=== PATIENT | male | born 1970 | race Caucasian/White ===

== ENCOUNTER 2017-12-05 11:07 | Emergency (ER) | payer MEDICARE, SELFPAY ==
[2017-12-05 11:08] VITALS: BP 145/93; PULSE 101; RESP 24; TEMP 36.7; O2SAT 95; BMI 43.2
--- NOTE | 2017-12-05 11:37 | CT_ITS ---
STUDY: CT BRAIN WITHOUT CONTRAST REASON FOR EXAM: Male, 47 years old. Headache. Intermittent double vision. RADIATION DOSAGE (If Supplied By Facility): CTDIvol = ( 44.99 ) mGy, DLP = ( 796.11 ) mGycm TECHNIQUE: Transaxial CT imaging of the brain was performed without administration of intravenous contrast material. Individualized dose optimization techniques were used for this CT. COMPARISON: None. FINDINGS: Normal soft tissue structures. Normal calvarium. Normal size ventricles and extra-axial spaces for the patient's age. Normal white matter tracts of the cerebral hemispheres. Normal basal ganglia and thalami. Normal brainstem. Normal cerebellum. There is no intracranial hemorrhage. There are no findings of an acute ischemic infarction. Mucosal thickening of the maxillary sinuses and the partial opacification of the ethmoid sinuses. CT/Brain/Head without Contrast IMPRESSION: Mucosal thickening of the maxillary sinuses bilaterally. Partial opacification of the ethmoid sinuses. Electronically Signed: Rosalio Dowling MD at 12:13 EST Tel [phone], Service support ,
--- NOTE | 2017-12-05 12:31 | ED.VISSUMM ---
- ER Visit Summary Date of Service: 12/05/17 Chief Complaint: Headache History of Present Illness: The patient is a 47 M presenting with intermittent right-sided headache for the past month. He went to the urgent care today and when he reported blurry vision, he was sent here to be evaluated. He actually states that he has had blurry vision since 2009, intermittently. He has never had his eyes checked or seen an director of land acquisition for this. He denies double vision, just blurry vision. He actually does not have any right now just occasionally when he tries to look at things that are far away. His headache is intermittent and lasts only a few seconds at a time, only over the right religion. No sinusitis symptoms. No upper respiratory symptoms. No neck pain. Physical Examination: Those are within normal limits. He is not in distress. Neck is supple. No meningeal findings. Lungs are clear bilaterally. Abdomen is soft and nontender. No focal or lateralizing neuro findings. Vision is 20/20 on my bedside exam. No pain with eye movement. Pupils are equal and reactive. No diplopia either monocular or binocular. Neurologic exam is normal. Mental status exam normal. Test Results: CT head was performed and is negative for obvious mass. There is some sinus thickening but he denies sinus pain or tenderness at this time. Emergency Department Course and Treatment: Has had the symptoms since 2009. His vision is normal here and he denies blurry or double vision. I am not certain what the cause of this is but I think that he can safely follow-up with an director of land acquisition to have his eyes examined. He will also follow-up with his primary care physician. Treatment Plan: Follow up with ophthalmology Disposition: Home in stable condition Impression: Initial encounter chronic headache uncertain etiology, initial encounter intermittent blurry vision ?8 years of uncertain etiology This note was generated with [employer] dictation software. It may contain incorrect words, spelling, and punctuation that were not noted in review of the chart prior to signing ED Disposition - Plan for ED Patient: Chief Complaint: Neuro S/Sx Instructions: ED Cephalgia Unspecified Referrals: Julian Mcqueen MD [STAFF PHYSICIAN] - 3-5 Days
--- NOTE | 2017-12-05 12:36 | ED.DCSUM_ITS ---
- ER Visit Summary Date of Service: 12/05/17 Chief Complaint: Headache History of Present Illness: The patient is a 47 M presenting with intermittent right-sided headache for the past month. He went to the urgent care today and when he reported blurry vision, he was sent here to be evaluated. He actually states that he has had blurry vision since 2009, intermittently. He has never had his eyes checked or seen an organic chemistry teacher for this. He denies double vision, just blurry vision. He actually does not have any right now just occasionally when he tries to look at things that are far away. His headache is intermittent and lasts only a few seconds at a time, only over the right latter day. No sinusitis symptoms. No upper respiratory symptoms. No neck pain. Physical Examination: Those are within normal limits. He is not in distress. Neck is supple. No meningeal findings. Lungs are clear bilaterally. Abdomen is soft and nontender. No focal or lateralizing neuro findings. Vision is 20/ 20 on my bedside exam. No pain with eye movement. Pupils are equal and reactive. No diplopia either monocular or binocular. Neurologic exam is normal. Mental status exam normal. Test Results: CT head was performed and is negative for obvious mass. There is some sinus thickening but he denies sinus pain or tenderness at this time. Emergency Department Course and Treatment: Has had the symptoms since 2009. His vision is normal here and he denies blurry or double vision. I am not certain what the cause of this is but I think that he can safely follow-up with an organic chemistry teacher to have his eyes examined. He will also follow-up with his primary care physician. Treatment Plan: Follow up with ophthalmology Disposition: Home in stable condition Impression: Initial encounter chronic headache uncertain etiology, initial encounter intermittent blurry vision ?8 years of uncertain etiology This note was generated with [employer] dictation software. It may contain incorrect words, spelling, and punctuation that were not noted in review of the chart prior to signing ED Disposition - Plan for ED Patient: Chief Complaint: Neuro S/Sx Instructions: ED Cephalgia Unspecified Referrals: Julian Mcqueen MD [STAFF PHYSICIAN] - 3-5 Days
[2017-12-05 12:46] VITALS: BP 129/68; PULSE 71; RESP 15; O2SAT 97
== END 2017-12-05 12:47 | disposition home or self-care (01) ==
LOC: ED 12:16
PROVIDERS: Emergency Provider Emergency Medicine
DX: R51 Headache (principal); H53.8 Other visual disturbances; F20.9 Schizophrenia, unspecified; F32.9 Major depressive disorder, single episode, unspecified; Z72.0 Tobacco use
CPT/HCPCS: 70450; 99282

== ENCOUNTER 2018-12-24 23:05 | Emergency (ER) | payer MEDICARE, SELFPAY ==
[2018-12-24 23:06] VITALS: BP 155/93; PULSE 134; RESP 15; TEMP 36.9; O2SAT 97; BMI 45.6
[2018-12-24 23:11] VITALS: BP 155/93; PULSE 131; RESP 18; O2SAT 98
--- NOTE | 2018-12-24 23:13 | RAD_ITS ---
STUDY: X-RAY CHEST REASON FOR EXAM: Male, 48 years old. Chest pain TECHNIQUE: Single AP portable view of the chest. COMPARISON: None. FINDINGS: The lungs are clear and expanded. There is no demonstrated pleural abnormality. Normal size heart. Normal mediastinum and jennifer. Normal visualized pulmonary arteries. Normal visualized aortic arch and descending thoracic aorta. Normal visualized thoracic spine. Normal visualized ribs, clavicles, and shoulders. There is no demonstrated abnormality of the visualized soft tissue structures of the upper abdomen. RAD/Chest 1 View (Portable) IMPRESSION: Normal x-ray examination of the chest. Electronically Signed: Chip Fermin MD at 23:51 EST , Service support ,
--- NOTE | 2018-12-24 23:13 | EKG12_ITS ---
Test Reason : CP Blood Pressure : / mmHG Vent. Rate : 127 BPM Atrial Rate : 127 BPM P-R Int : 156 ms QRS Dur : 080 ms QT Int : 290 ms P-R-T Axes : 036 217 012 degrees QTc Int : 421 ms Sinus tachycardia Right superior axis deviation Abnormal ECG Confirmed by PHUONG CONNER, ALEX ([id number]), editor in chief newspaper IRA JAMA ([id number]) on 12/29/2018 8:48:17 AM Referred By: CECILIA Confirmed By:ALEX BACA MD
--- NOTE | 2018-12-24 23:22 | ED.RN ---
FAMILY APPROACHED ME IN TRIAGE AND INFORMED THAT PT WAS HERE FOR MENTAL HEALTH ISSUES. FAMILY WAS INFORMED THAT WE NEEDED TO MAKE SURE HIS HEART WAS OKAY THEN THAT WOULD BE ADDRESSED. Neel PUENTES RN [id number]
[2018-12-24 23:26] LABS: Absolute Lymphocyte Count 2.99 X10^3/ul (0.83-4.51); Absolute Neutrophil Count 10.8 X10^3/uL (2.0-7.7); Basophil# 0.03 X10^3/uL; Basophil% 0.2 % (0-1); Eosinophil# 0.11 X10^3/uL; Eosinophils% 0.7 % (0-5); Hematocrit 46.3 % (40-54); Lymphocyte # 2.99 X10^3/ul (4.0); Lymphocyte % 20.2 % (19-41); Mean Corp Hgb Conc 34.6 g/gl (32-36); Mean Corpuscular Hgb 29.9 pg (27.0-32.0); Mean Corpuscular Volume 86.4 fL (80-94); Mean Platelet Vol. 9.2 fl (6.2-12.0); Monocyte# 0.89 X10^3/uL; Neutrophil # 10.76 X10^3/uL (2.7-7.7); Neutrophil % 72.6 % (47-70); POSITIVE COUNT NO; POSITIVE DIFFERENTIAL NO; POSITIVE MORPHOLOGY NO; Platelet Count 363 K/mm3 (150-450); RBC Distribution Width CV 13.8 % (11.6-14.6); RBC Distribution Width SD 43.2 fl (35.1-43.9); Red Blood Count 5.36 M/mm3 (4.6-6.2); White Blood Count 14.8 K/mm3 (4.4-11.0)
[2018-12-24 23:41] LABS: Anion Gap 10 (5-15); BUN 11 mg/dL (7-18); Calcium,Total 8.6 mg/dL (8.5-10.1); Chloride 105 mmol/L (98-107); EST Glomerular Filtration Rate 76 mL/min (>60); Est Glom Filt Rate - Afr Amer 92 mL/min (>60); Estimated Creatinine Clearance 79.45 ml/min; Glucose 139 mg/dL (74-106); Potassium 3.8 mmol/L (3.5-5.1); Sodium Level 136 mmol/L (136-145)
[2018-12-24 23:56] VITALS: BP 136/97; PULSE 117; RESP 23; O2SAT 96
--- NOTE | 2018-12-25 00:04 | NURSING ---
CALLED CRISIS AT 0005
[2018-12-25] MEDS: 0.9% Normal Saline 1,000 ML 999 ML IV (00:41)
[2018-12-25 01:01] LABS: Amphetamine Urine VISTA NEGATIVE (<1000 ng/mL); Barbiturate Urine VISTA NEGATIVE (< 200 ng/mL); Benzodiazepine Urine VISTA NEGATIVE (< 200 ng/mL); Cocaine Urine VISTA NEGATIVE (< 300 ng/mL); Ecstacy Urine VISTA NEGATIVE (< 500 ng/mL); Methadone Urine VISTA NEGATIVE (< 300 ng/mL); PCP Urine VISTA NEGATIVE (< 25 ng/mL); THC Urine VISTA NEGATIVE (< 50 ng/mL); Vista UDS pH Range 6
--- NOTE | 2018-12-25 01:14 | ED.DCSUM_ITS ---
- ER Visit Summary Date of Service: 12/25/18 Chief Complaint: Pain History of Present Illness: The patient is a 48 M with chest pain that has been going on for weeks. It is intermittent and lasts for seconds at a time. It feels like a sharp pain over his heart. Nothing seems to bring it on or make it worse. Nothing seems to make it better. He denies any history of this in the past. No other associated symptoms like shortness of breath, nausea, vomiting, sweats, lightheadedness. Patient reports a history of schizophrenia. He says he is compliant with Risperdal and Zoloft. He chews tobacco. Denies drug use or alcohol use. His father and aunt are with him. They mentioned that he has hallucinations and they are concerned. The patient says he has ongoing hallucinations and they are not new. He is hearing voices from his TV that tell him random things. They have told him to hurt himself in the past but they are not telling him that currently. He does not feel suicidal or homicidal. He denies any other associated psychiatric symptoms and is taking care of himself okay. Physical Examination: Afebrile and vital signs unremarkable except for a heart rate of 131. Patient is alert and oriented. No acute distress. He has a depressed mood and flat affect. Head and neck are atraumatic. Heart tachycardic but regular. Lungs clear. Abdomen soft. Skin normal in color without diaphoresis or pallor. Calf soft and supple. Strong equal pulses. Test Results: EKG showed sinus rhythm at a rate of 127. White count 14.8. Glucose 139. Troponin normal. Tox negative. Alcohol pending. Chest x-ray normal. Emergency Department Course and Treatment: Patient was initially triaged by nursing for chest pain. Workup was initiated by nursing and was fairly unremarkable. He had a white count of 14.8 but no fever or signs of infection. His workup did not reveal any evidence of infection. Patient was treated with IV fluids and his heart rate improved to 106. He had no new or worsening complaints. I did have crisis talk with the patient. He does have hallucinations, but they are not new or emergent. There is no indication for emergency hospitalization. There is no indication to change his medications tonight. They will coordinate follow-up with him. Call tomorrow. Patient was advised to follow-up with his primary care doctor. Return for any new or worsening issues. Treatment Plan: As above Disposition: Discharge Impression: 1. Chest pain unclear etiology 2. Schizophrenia This note was generated with [employer] dictation software. It may contain incorrect words, spelling, and punctuation that were not noted in review of the chart prior to signing ED Disposition - Plan for ED Patient: Referrals: Care Physician,No Primary [Primary Care Provider] -
--- NOTE | 2018-12-25 01:16 | ED.DEP ---
ED Disposition - Plan for ED Patient: Instructions: ED Chest Pain Atypical Unkn Cause Referrals: Bianca Solorzano [NON-STAFF] - Counseling[facility]Center [GROUP OF PHYSICIANS] -
[2018-12-25 01:32] VITALS: BP 143/90; PULSE 100; RESP 18; O2SAT 97
[2018-12-25 01:36] LABS: Alcohol, Blood (Medical)-Serum < 3.0 mg/dL
== END 2018-12-25 01:32 | disposition home or self-care (01) ==
LOC: ED 12-25 00:13
PROVIDERS: Emergency Provider Emergency Medicine
DX: R07.9 Chest pain, unspecified (principal); F20.9 Schizophrenia, unspecified; F17.220 Nicotine dependence, chewing tobacco, uncomplicated; Z79.899 Other long term (current) drug therapy
CPT/HCPCS: 71045; 80048; 80307; 80320; 84484; 85025; 93005; 96360; 99285; J7030; A4216; G0480

== ENCOUNTER 2021-07-23 19:59 | Emergency (ER) | payer MEDICARE, SELFPAY ==
[2021-07-23 20:00] VITALS: BP 161/112; PULSE 117; RESP 16; TEMP 36.6; O2SAT 98
[2021-07-23 20:02] VITALS: BP 161/112; PULSE 117; RESP 16; TEMP 36.6; O2SAT 98
[2021-07-23 23:13] VITALS: BP 121/89; PULSE 107; RESP 16; O2SAT 100
--- NOTE | 2021-07-23 23:18 | EX.ED.DYSGE1 ---
HPI History of Present Illness Chief Complaint: Weakness Detail of Chief Complaint: Weakness, numbness abdomen and both lower extremities Informant: patient and family Onset/Context/Timing Onset: Weeks (Onset 3 weeks ago) Context: Gradual Onset Timing: Continuous Quality: Numbness Location: Abdomen and both lower extremities Current Severity: Mild Worsened by: Nothing Relieved by: Nothing Associated Symptoms Associated Symptoms: Generalized weakness weakness Narrative Narrative: Patient is a 51-year-old male with history of psychiatric disorder of depression. He presents because of numbness in his mid upper abdomen and medial aspect of the right and left lower legs from the groin to the mid calf. He denies fever, chills night sweats. He denies ocular, visual auditory symptoms. He denies cardiac or respiratory symptoms. He denies nausea, vomiting diarrhea. He denies hematemesis, melena medic easier. He denies dysuria, frequency, urgency or hematuria. His urine may be darker than normal. He denies history of hepatitis. He was unaware that his skin appears yellow. He denies trouble with balance. No trouble with speech or swallowing. Prior similar symptoms: No Recent Illness/Hospitalization: No PFSH PFS Medical History Depression Schizophrenia Home Medications risperidone [Risperdal] 4 mg PO DAILY 09/06/15 [History Last Taken 12/24/18] sertraline [Zoloft] 50 mg PO DAILY 09/06/15 [History Last Taken 12/24/18] Allergy/AdvReac Type Severity Reaction Status Date / Time No Known Allergies Allergy Verified 07/23/21 20:02 Social History (Updated 07/23/21 @ 23:[address] Ozzy Betts MD) household members: none Smoking Status: Never smoker alcohol intake: never substance use type: does not use ROS ROS ED Constitutional Constitutional ED: Reports other Details: Patient's had weight gain over the past several months. ; Denies chills, fever(s), subjective, sweats or weight loss Eyes Eyes: Denies blurry vision or change in vision ENT ENT ED: Denies ear pain, rhinorrhea or sore throat Cardiovascular Cardiovascular: Denies chest pain, orthopnea, palpitations, paroxysmal nocturnal dyspnea or racing heartbeat Respiratory/Chest Respiratory/Chest: Denies cough, dyspnea, dyspnea on exertion, orthopnea, paroxysmal nocturnal dyspnea or sputum Gastrointestinal Gastrointestinal: Reports abdominal pain; Denies constipation, diarrhea, melena, nausea or vomiting Genitourinary Genitourinary ED: Denies dysuria, hematuria or urinary frequency Musculoskeletal Musculoskeletal: Denies arthralgias, back pain, myalgias or neck pain Integumentary Denies rash Neurologic Neurologic: Reports paresthesias and weakness; Denies headache(s) Psychiatric Psychiatric: Reports depression Endocrine Endocrinology: Denies polydipsia, polyphagia or polyuria Allergic/Immunologic Allergic/Immunologic ED: Denies urticaria EXAM Physical Exam Const Vital Signs: 07/23/21 20:00 07/23/21 20:02 07/23/21 23:13 Temperature 98 F 98 F Temperature Source Temporal Temporal Pulse Rate 117 H 117 H 107 H Respiratory Rate 16 16 16 Blood Pressure 161/112 H 161/112 H 121/89 H Blood Pressure Mean 128 128 99 Pulse Ox 98 98 100 Oxygen Delivery Method Room Air Room Air Room Air 07/24/21 01:00 Temperature Temperature Source Pulse Rate 103 H Respiratory Rate 14 Blood Pressure 125/86 H Blood Pressure Mean 99 Pulse Ox 97 Oxygen Delivery Method Room Air Positive well nourished, well developed, obese and unkempt General Appearance ED: unkempt, well developed and pallor Nutritional Appearance: obese HEENT HEENT Narrative: Head is atraumatic normocephalic. Ears normal. Nares patent. Posterior pharynx no erythema or exudate. Patient has poor dentition with periodontal disease. Eyes PERRL and EOMs intact bilaterally General Eye ED: Yes scleral icterus; Negative for pale conjunctiva Neck no lymphadenopathy, supple and no JVD Chest Wall inspection of chest normal and palpation of chest normal Resp normal respiratory effort and clear to auscultation bilaterally Cardio regular rhythm, S1 normal heart sound, S2 normal heart sound and no murmurs Rate: tachycardic GI normal to inspection, nondistended, normoactive bowel sounds, non-tender and non-distended; Negative for hepatosplenomegaly Palpation: soft Back/Spine no CVA tenderness Cervical Spine: Negative for cervical spine tenderness Thoracic Spine / Upper Back: Negative for thoracic spinal tenderness or paraspinal muscle tenderness Lumbar Spine / Lower Back: Negative for lumbar spinal tenderness Extremity Negative for normal to inspection General Extremety ED: Yes edema; Negative for tenderness General Extremity: edema Neuro oriented x3, CN's II-XII intact bilaterally and no sensory deficits noted Sensorium / Orientation: alert Motor Exam: strength 5/5 throughout Psych mental status grossly normal Appearance: unkempt Skin no rashes or lesions noted and no wounds General Skin Exam: jaundice and pallor MDM MDM MDM Narrative Medical decision making narrative: Patient with vague symptoms. Concern he has jaundice. Will obtain appropriate blood work to assess liver function, CBC to assess for anemia since he may also be pale. Basic metabolic panel to assess renal function since he has not been eating well and assess his electrolytes. Lab Data Attestation: I reviewed the patient's lab results. Lab results narrative: Patient is anemic compared to prior, PT is normal. Bilirubin is elevated at 4. AST and ALT are elevated as well as alk phos. With unintentional weight loss, painless jaundice, edema of lower extremities and anemia concern patient has malignancy. CT of the abdomen and pelvis with p.o. and IV contrast was ordered. Labs: Laboratory Results - last 24 hr 07/23/21 07/23/21 07/23/21 22:28 22:28 23:10 WBC 7.3 RBC 2.73 L Hgb 10.2 L Hct 29.2 L MCV 107.0 H MCH 37.4 H MCHC 34.9 RDW Std Deviation 71.6 H RDW Coeff of Monet 18.1 H Plt Count 232 MPV 10.7 Immature Gran % (Auto) 2.100 H Neut % (Auto) 73.0 H Lymph % (Auto) 19.7 Armstrong % (Auto) 4.5 Eos % (Auto) 0.3 Baso % (Auto) 0.4 Absolute Neuts (auto) 5.3 Absolute Lymphs (auto) 1.43 Nucleated RBC % 0 Differential Comment SCANNED PT 14.7 INR 1.2 Sodium 137 Potassium 3.3 L Chloride 102 Carbon Dioxide 27.0 Anion Gap 8 BUN 9 Creatinine 1.11 Estim Creat Clear Calc 5.05 Est GFR (MDRD) Af Amer 90 Est GFR (MDRD) Non-Af 74 BUN/Creatinine Ratio 8.1 L Glucose 135 H Calcium 8.8 Total Bilirubin 4.00 H AST 117 H ALT 167 H Alkaline Phosphatase 165 H Total Protein 7.3 Albumin 3.0 L Globulin 4.3 H Albumin/Globulin Ratio 0.7 L Lipase 149 Acetaminophen 10/04/21 23:10 WBC RBC Hgb Hct MCV MCH MCHC RDW Std Deviation RDW Coeff of Monet Plt Count MPV Immature Gran % (Auto) Neut % (Auto) Lymph % (Auto) Armstrong % (Auto) Eos % (Auto) Baso % (Auto) Absolute Neuts (auto) Absolute Lymphs (auto) Nucleated RBC % Differential Comment PT INR Sodium Potassium Chloride Carbon Dioxide Anion Gap BUN Creatinine Estim Creat Clear Calc Est GFR (MDRD) Af Amer Est GFR (MDRD) Non-Af BUN/Creatinine Ratio Glucose Calcium Total Bilirubin AST ALT Alkaline Phosphatase Total Protein Albumin Globulin Albumin/Globulin Ratio Lipase Acetaminophen < 2.0 L Radiography Diagnostic Testing: Radiology Impression Abdomen/Pelvis CT 07/24/21 00:26 IMPRESSION: 1. No acute intra-abdominal abnormality. 2. Fatty infiltration of liver. 3. Simple appearing right lower renal pole cyst. Electronically Signed: Ji Pool MD at 2:41 EDT Tel , Service support , Discharge Plan Triage Chief Complaint: Weakness ED Provider: Ozzy Betts Dx/Rx/DC Orders Clinical Impression: Painless jaundice, Elevation of levels of liver transaminase levels, Unintentional weight loss of 5% body weight or less within 1 month, Anemia, unspecified, Hypokalemia Instructions: ED Anemia, Type Not Specified (Adult), ALT Prescriptions: No Action risperidone [Risperdal] 2 MG tablet 4 mg PO DAILY RF: 0 sertraline [Zoloft] 25 MG tablet 50 mg PO DAILY RF: 0 Primary Care Provider: Care Physician,No Primary Referrals: FriendOtto DO [STAFF PHYSICIAN] - 5-7 Days (Patient with painless jaundice, unintentional weight loss, elevated liver enzymes. Patient is a nondrinker. He is also anemic) Care Physician,No Primary [Primary Care Provider] - Disposition Disposition: Home, Self Care
[2021-07-23 23:32] LABS: Absolute Lymphocyte Count 1.43 X10^3/uL (0.83-4.51); Absolute Neutrophil Count 5.3 X10^3/uL (2.0-7.7); Basophil# 0.03 X10^3/uL; Basophil% 0.4 % (0-1); Eosinophil# 0.02 X10^3/uL; Eosinophils% 0.3 % (0-5); Hematocrit 29.2 % (40-54); Hemoglobin 10.2 g/dL (13.0-16.5); Lymphocyte # 1.43 X10^3/ul (0.83-4.51); Lymphocyte % 19.7 % (19-41); Mean Corp Hgb Conc 34.9 g/dL (32-36); Mean Corpuscular Hgb 37.4 pg (27.0-32.0); Mean Platelet Vol. 10.7 fl (6.2-12.0); Monocyte# 0.33 X10^3/uL; Monocyte% 4.5 % (0-10); NRBC Flagged by Analyzer 0 % (0-5); Neutrophil # 5.31 X10^3/uL (2.7-7.7); POSITIVE MORPHOLOGY YES; Platelet Count 232 K/mm3 (150-450); RBC Distribution Width CV 18.1 % (11.6-14.6); RBC Distribution Width SD 71.6 fl (35.1-43.9); Red Blood Count 2.73 M/mm3 (4.6-6.2); White Blood Count 7.3 K/mm3 (4.4-11.0)
[2021-07-23 23:37] LABS: ALB/GLOB Ratio 0.7 RATIO (0.9-2.4); AST(SGOT) 117 U/L (15-37); Alanine Aminotransfer ALT/SGPT 167 U/L (16-61); Alkaline Phosphatase 165 U/L (45-117); Anion Gap 8 (5-15); BUN 9 mg/dL (7-18); BUN/Creat Ratio 8.1 RATIO (10-20); Calcium,Total 8.8 mg/dL (8.5-10.1); Chloride 102 mmol/L (98-107); Creatinine, Serum 1.11 mg/dL (0.70-1.30); EST Glomerular Filtration Rate 74 mL/min (>60); Est Glom Filt Rate - Afr Amer 90 mL/min (>60); Estimated Creatinine Clearance 5.05 ml/min; Globulin 4.3 g/dL (2.2-4.2); Glucose 135 mg/dL (74-106); Lipase 149 U/L (73-393); Potassium 3.3 mmol/L (3.5-5.1); Protein, Total 7.3 g/dL (6.4-8.2); Sodium Level 137 mmol/L (136-145)
[2021-07-23 23:44] LABS: Differential Indicated SCAN CRITERIA MET
[2021-07-23 23:46] LABS: International Normalized Ratio 1.2; Prothrombin Time (Protime)PT. 14.7 SECONDS (11.7-14.9)
[2021-07-24 00:07] LABS: Differential Comment SCANNED
--- NOTE | 2021-07-24 00:26 | CT_ITS ---
STUDY: CT ABDOMEN AND PELVIS WITH CONTRAST REASON FOR EXAM: Male, 51 years old. Weight loss. Painless jaundice. RADIATION DOSAGE (If Supplied By Facility): CTDIvol = ( 18.74 ) mGy, DLP = ( 1326.11 ) mGycm TECHNIQUE: Transaxial images were obtained from the dome of the diaphragm to the symphysis pubis without oral contrast. Oral and amp; IV Gastrografin and amp; 100mL Isovue-370 was administered. Sagittal and coronal images were reconstructed. Individualized dose optimization techniques were used for this CT. COMPARISON: None. FINDINGS: The visualized lung bases are unremarkable. The visualized portions of the heart are within normal limits. Moderate diffuse homogeneous hypoattenuation of the. Normal gallbladder and extrahepatic biliary system. Normal spleen. Normal pancreas. Normal bilateral adrenal glands. Hypoattenuated lesion within the right lower renal pole measuring near water density. Normal left kidney. Normal bilateral ureters. Normal visualized stomach. Normal small intestine. Normal colon. The appendix is visualized and appears normal. Normal abdominal aorta. Normal inferior vena cava. Normal retroperitoneum. No free intraperitoneal air or fluid. Normal urinary bladder. Normal abdominal wall. Normal osseous structures. CT/Abdomen/Pelvis WITH Contrast IMPRESSION: 1. No acute intra-abdominal abnormality. 2. Fatty infiltration of liver. 3. Simple appearing right lower renal pole cyst. Electronically Signed: Ji Pool MD at 2:41 EDT Tel , Service support ,
[2021-07-24 01:00] VITALS: BP 125/86; PULSE 103; RESP 14; O2SAT 97
[2021-07-24 01:10] LABS: Acetaminophen (Tylenol) Level < 2.0 ug/mL (10.0-30.0)
[2021-07-24 03:04] LABS: Mucous, Urine 0 SEEN /hpf (<or=2+)
[2021-07-24 03:17] LABS: Color, Urine Yellow (Yellow); Glucose, Dipstick Normal (Normal); Ketone-Dipstick Negative (Negative); Leukocyte Esterase-Dipstick 100 /ul (Negative); Nitrite-Dipstick Negative (Negative); Occult Blood-Urine 25 /ul (Negative); Protein-Dipstick 30 mg/dl (Negative); Urine Bilirubin Dipstick Negative (Negative); Urine Clarity Sl. Cloudy (Clear); Urine Urobilinogen 4 mg/dl (Normal)
[2021-07-24 03:19] VITALS: BP 158/89; PULSE 103; RESP 16; O2SAT 97
[2021-07-24 03:30] LABS: Red Blood Cells-Urine 0-5 SEEN /hpf (0-5); Squamous Epithelial Cells - UA 0-5 SEEN /hpf (0-5); White Blood Cells 0-5 SEEN /hpf (0-5)
[2021-07-24 03:31] LABS: Bacteria RARE /hpf (None Seen)
== END 2021-07-24 03:19 | disposition home or self-care (01) ==
PROVIDERS: Emergency Provider Emergency Medicine
DX: R17 Unspecified jaundice (principal); R74.01 Elevation of levels of liver transaminase levels; R63.4 Abnormal weight loss; D64.9 Anemia, unspecified; E87.6 Hypokalemia; F32.9 Major depressive disorder, single episode, unspecified; F20.9 Schizophrenia, unspecified; Z79.899 Other long term (current) drug therapy
CPT/HCPCS: 74177; 80053; 80329; 81001; 83690; 85025; 85610; 99284; Q9967; A4216; G0480

== ENCOUNTER → 2021-08-02 12:41 | Outpatient (CLI) | payer MEDICARE, SELFPAY ==
[2021-08-02 13:40] LABS: Platelet Count 354 K/mm3 (150-450); RET-HE 42.5 pg (30-35); Reticulocyte Count 6.46 % (0.5-1.5)
[2021-08-02 13:47] LABS: International Normalized Ratio 1.2; Prothrombin Time (Protime)PT. 14.5 SECONDS (11.7-14.9)
[2021-08-02 13:48] LABS: Partial Thromboplast Time 33.5 Seconds (24.1-36.2)
[2021-08-02 14:23] LABS: Ferritin 843 ng/mL (26-388); Iron 101 ug/dL (65-175); Iron Binding Capacity,Total 249 ug/dL (250-450)
[2021-08-06 09:07] LABS: ANTINUCLEAR ANTIBODIES DIRECT Negative (Negative); Anti-Mitochondrial AB <20.0 Units (0.0-20.0)
[2021-08-10 04:07] LABS: Ceruloplasmin 19.3 mg/dL (16.0-31.0); Endomysial Antibody IgA Negative (Negative); Immunoglobulin A 221 mg/dL (90-386)
[2021-08-10 08:12] LABS: Anti-Smooth Muscle ABS 14 Units (0-19); Copper, Serum or Plasma 72 ug/dL (69-132); Deamidated Gliadin IgA 4 units (0-19); Deamidated Gliadin IgG 3 units (0-19); t-Transglutaminase IgA <2 U/mL (0-3)
== END ==
PROVIDERS: Referring Provider Internal Medicine Gastroenterology; Visit Provider Internal Medicine Gastroenterology
DX: R17 Unspecified jaundice (principal); D64.9 Anemia, unspecified
CPT/HCPCS: 36415; 82390; 82525; 82728; 82784; 83516; 83540; 83550; 85045; 85049; 85610; 85730; 86038; 86225; 86235; 86255; 86880

== ENCOUNTER → 2021-08-09 13:34 | Outpatient (CLI) | payer MEDICARE, SELFPAY ==
[2021-08-09 14:42] LABS: Absolute Lymphocyte Count 1.86 X10^3/uL (0.83-4.51); Absolute Neutrophil Count 5.7 X10^3/uL (2.0-7.7); Basophil# 0.02 X10^3/uL; Basophil% 0.2 % (0-1); Eosinophils% 1.2 % (0-5); Hemoglobin 10.6 g/dL (13.0-16.5); Lymphocyte # 1.86 X10^3/ul (0.83-4.51); Lymphocyte % 22.9 % (19-41); Mean Corp Hgb Conc 34.2 g/dL (32-36); Mean Corpuscular Hgb 38.1 pg (27.0-32.0); Mean Corpuscular Volume 111.5 fL (80-94); Mean Platelet Vol. 9.3 fl (6.2-12.0); Monocyte# 0.43 X10^3/uL; Monocyte% 5.3 % (0-10); NRBC Flagged by Analyzer 0 % (0-5); Neutrophil # 5.67 X10^3/uL (2.7-7.7); Platelet Count 324 K/mm3 (150-450); RBC Distribution Width SD 62.1 fl (35.1-43.9); Red Blood Count 2.78 M/mm3 (4.6-6.2); White Blood Count 8.1 K/mm3 (4.4-11.0)
[2021-08-09 15:09] LABS: ALB/GLOB Ratio 0.6 RATIO (0.9-2.4); AST(SGOT) 32 U/L (15-37); Alanine Aminotransfer ALT/SGPT 37 U/L (16-61); Albumin, Serum 2.4 g/dL (3.2-5.0); Alkaline Phosphatase 118 U/L (45-117); Anion Gap 8 (5-15); BUN 12 mg/dL (7-18); BUN/Creat Ratio 9.1 RATIO (10-20); Calcium,Total 8.1 mg/dL (8.5-10.1); Chloride 109 mmol/L (98-107); Creatinine, Serum 1.32 mg/dL (0.70-1.30); EST Glomerular Filtration Rate 61 mL/min (>60); Est Glom Filt Rate - Afr Amer 74 mL/min (>60); Glucose 131 mg/dL (74-106); Potassium 3.3 mmol/L (3.5-5.1); Protein, Total 6.4 g/dL (6.4-8.2); Sodium Level 141 mmol/L (136-145)
== END ==
PROVIDERS: Referring Provider Internal Medicine Gastroenterology; Visit Provider Internal Medicine Gastroenterology
DX: D64.9 Anemia, unspecified (principal); R17 Unspecified jaundice
CPT/HCPCS: 36415; 80053; 85025

== ENCOUNTER 2021-08-14 12:41 | Day surgery (SDC) | payer MEDICARE, SELFPAY ==
--- NOTE | 2021-08-14 | IMM_PTH ---
PATIENT: ANGELITA KRUSE LOC: EN U#:[id number] AGE/SX: 51/M ROOM: RE08/14/[address]: Dr. Otto Davidson DO : 1970 BED: DIS: 08/14/2021 SPEC #: [id number] RECD: 08/16/21 11:44 STATUS: GLENROY REQ #: [id number] EVE: 08/14/21 00:[address]: Otto Davidson DEPT: IMMUNOHISTOCHEMISTRY RECD BY: Shannon He ENTERED: 08/16/21 11:45 SP TYPE: IMMUNO OT DR: Isa Primary Care Phys Tissues: B - Esophageal mucous membrane Procedures: P53 (initial) KI-67 (add) PHYSICIAN & INSTITUTION [place] [id number] SPECIMEN INFORMATION: Tissue Source: B ? Distal esophagus biopsy Clinical Info: Jaundice, hepatitis, abdomen pain Specimen Number: [id number] CPT code: 88511, 93596 METHODOLOGY: Deparaffinized sections of prefer/formalin-fixed tissue or PAP/DQ stained slides are incubated with monoclonal/polyclonal antibodies/oligonucleotide probes. Localization is made via biotin free immunoperoxidase method. Appropriate controls are performed and reacted as expected. Results on target cell population are indicated in the following table: RESULTS: ANTIBODY / CLONE RESULT Block B P53 (DO-7) negative Ki-67 (30-9) positive, very low These tests were developed and their performance characteristics determined by [facility]. They may not have been cleared or approved by the U.S. Food and Drug Administration. The FDA has determined that such clearance or approval is not necessary. The above immunohistochemical/dualISH markers are ordered and reviewed by the Pathologist. INTERPRETATION: B. Distal esophagus, biopsy: Negative for dysplasia. MALGORZATA:jama 08/17/2021
[2021-08-14 13:02] VITALS: BP 146/81; PULSE 73; RESP 16; TEMP 36.3; O2SAT 100; BMI 39.4
[2021-08-14] MEDS: Lactated Ringers 1,000 ML 100 ML IV (13:11)
--- NOTE | 2021-08-14 13:45 | EGD_PTH ---
PATIENT: ANGELITA KRUSE LOC: EN U#:[id number] AGE/SX: 51/M ROOM: RE08/14/[address]: Dr. Otto Davidson DO : 1970 BED: DIS: 08/14/2021 SPEC #: [id number] RECD: 08/14/21 16:02 STATUS: GLENROY DOC #: [id number] EVE: 08/14/21 13:[address]: Otto Davidson DEPT: SURGICAL PATHOLOGY RECD BY: Eugenia Ness ENTERED: 08/15/21 10:29 SP TYPE: EGD BIOPSY OT DR: Isa Primary Care Phys Tissues: A - Duodenum, NOS B - Esophagus, NOS Procedures: Special Stain Group II Surgery Specimen Level IV Alcian Blue/PAS (control) HEADER OPERATION: EGD ([facility] [place]) PRE-OP DIAGNOSIS: Jaundice, hepatitis, abdomen pain TISSUE SUBMITTED: A ? Duodenum biopsy, B ? Distal esophagus biopsy MICROSCOPIC DIAGNOSIS A. Duodenum, biopsy: Fragments of duodenal mucosa, no pathologic diagnosis. B. 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 Mild chronic inflammation. Negative for dysplasia. See comment. SJ:jama 08/16/2021 COMMENT B. Immunohistochemistry ([id number]) for P53 and Ki-67 will be performed and results will be reported separately. Alcian blue/PAS stain with matched control is used in the evaluation of the specimen. MICROSCOPIC DESCRIPTION Slides are reviewed. GROSS DESCRIPTION A - Received in fixative is one container labeled with the patient's name and designated duodenum biopsy. The specimen consists of multiple irregular fragments of light howard soft tissue that in aggregate measure 0.6 x 0.5 x 0.1 cm. The specimen is totally submitted in one cassette. B - Received in fixative is one container labeled with the patient's name and designated distal esophagus biopsy. The specimen consists of multiple irregular fragments of light howard soft tissue that in aggregate measure 1 x 0.8 x 0.1 cm. The specimen is totally submitted in one cassette. / MALGORZATA:jama 08/15/21 TC:3 CPT: 23804 x2, 33701
--- NOTE | 2021-08-14 14:05 | HP.PCM_ITS ---
History and Physical Date of Admission: 08/14/21 [facility] [id number] [place] [address] OFFICE VISITDate of Service: 08/02/21 MR#:[id number]:[id number]: ANGELITA KRUSE [facility] #:[id number]:1970 Provider:Otto Davidson, Age/Sex: 51/M Location[place] [place]:Signed Intake Intake Visit Reasons: ER f/u - no consult Allergies No Known Allergies Allergy (Verified 08/02/21 11:43) Medications risperidone [Risperdal] 4 mg PO DAILY 09/06/15 [History Confirmed 08/02/21] sertraline [Zoloft] 50 mg PO DAILY 09/06/15 [History Confirmed 08/02/21] PFSH Medical History (Updated 08/02/21 @ 13:[address] Menjivar Friend, DO) Abdominal pain Depression Hepatitis Jaundice Schizophrenia Social History household members: none Smoking Status: Never smoker alcohol intake: never substance use type: does not use HPI HPI Details: ANGELITA KRUSE, is a 51 M who presents to the office today for the evaluation of abdominal pain and jaundice. He has a past medical history of h psychiatric disorder of depression. He presented to the ED because of numbness in his mid upper abdomen and medial aspect of the right and left lower legs from the groin to the mid calf. He denies fever, chills night sweats. He denies ocular, visual auditory symptoms. He denies cardiac or respiratory symptoms. He denies nausea, vomiting diarrhea. He denies hematemesis, melena medic easier. He denies dysuria, frequency, urgency or hematuria. His urine may be darker than normal. He denies history of hepatitis. He was unaware that his skin appears yellow. He denies trouble with balance. No trouble with speech or swallowing. He is having a lot of difficulty with walking due to tightness and discomfort in his stomach and legs for the last couple weeks. Change in bowel habits include a decreased frequency stating he is having a BM once every couple of days. Appetite has decreased due to discomfort and feelings of nausea after eating. Recently hospitalized 07/23/21 where he was diagnosed with jaundice and anemia. Ed herrera has a diagnosis of schizophrenia and his father presents with him today. He has no past medical history of liver disease. He has no family history of liver disease. He was diagnosed with schizophrenia late in life at the age of 35. He has not been on any new medicines. He has not had any illnesses. He has never received any blood transfusions. He does not have any tattoos. ROS Const Constitutional: Positive for fatigue Eyes Eyes: Positive for blurry vision Gastro GI: Positive for abdominal pain and change in bowel habits Musc Musculoskeletal: Positive for joint pain, back pain, muscle weakness, numbness, stiffness and tingling Neuro Neurology: Positive for numbness and tingling Psych Psychiatric: Positive for depression Endo Endocrine: Positive for fatigue Exam Const General: cooperative and comfortable Nutritional Appearance: average body habitus and well nourished HENMT Head: normal to inspection Ears: hearing grossly normal bilaterally Nose: external nose normal Face and sinus: normal facial exam Mouth: oral mucosae normal Throat: posterior oropharynx normal Eyes General: appearance normal, both eyes and all related structures Neck Neck: normal visual inspection Chest Chest palpation & inspection: normal inspection of the chest and normal palpation of entire chest wall Resp Effort & Inspection: normal respiratory effort Auscultation: Bilateral: Clear to Auscultation Cardio Palpation: normal PMI Rate: regular rate Rhythm: regular rhythm GI Inspection: normal to inspection Auscultation: normal bowel sounds Percussion: normal to percussion Palpation: no hepatosplenomegaly Skin General: no rashes or lesions noted Neuro General: patient alert Extrem General: normal to inspection Psych Affect: normal affect Quality Reporting Tobacco Screening ([facility] 138) Smoking Status: Never smoker Assessment and Plan Assessment and Plan (1) Jaundice: Status: Acute Orders: Orders: Retic Panel Count Today Ceruloplasmin Today Copper, Serum or Plasma Today Anti-Mitochondrial AB Today FRANCESCO w/ Reflex Mult Confirm Today Anti-Smooth Muscle ABS Today Celiac AB,Comprehensive Today MRCP Abdomen without Contrast Today Liver Biopsy Ultrasound Today Comprehensive Metabolic Profil Today Plan - Dr. Menjivar Friend, DO: The differential diagnosis for his cholestatic hepatitis would be Luis Fernando's disease, medication side effect, autoimmune hepatitis, less likely primary bili cirrhosis or primary sclerosing cholangitis. We will get an autoimmune work-up for the liver. If concern is that he might have Luis Fernando's disease because of his psychiatric history along with the anemia that was seen on his biochemical work- up in the ED. He would likely need a liver biopsy along with an MRCP. (2) Hepatitis: Status: Acute Orders: Orders: Copper, Serum or Plasma Today Liver Biopsy Ultrasound Today Prothrombin Time w/INR Today Partial Thromboplast Time Today Comprehensive Metabolic Profil Today Plan - Dr. Menjivar Friend, DO: We will get a biochemical work-up for chronic hepatitis B and chronic hepatitis C along with autoimmune hepatitis. (3) Abdominal pain: Status: Acute Plan - Dr. Menjivar Friend, DO: We will perform an upper endoscopy to evaluate his upper GI tract. He is not exquisitely tender but he is mildly tender with pressure and the epigastric area. Differential diagnosis could be peptic ulcer disease, H. pylori associated peptic ulcer disease, atypical reflux disease.
[2021-08-14 15:00] VITALS: BP 110/61; BP 146/81; PULSE 67; RESP 16; TEMP 35.7; O2SAT 93
--- NOTE | 2021-08-14 15:04 | OP.CCLET_ITS ---
06/20/2022 No Primary Care Physician Re : Upper GI endoscopy procedure for Eliot Patel Dear Care Physician This procedure was performed on Saturday, August 14, 2021. My impressions and recommendations are as follows: Impressions : - LA Grade C reflux esophagitis. Rule out Soares's esophagus. Biopsied. - Normal stomach. - Erythematous duodenopathy. - Duodenitis. Biopsied. Recommendations : - Discharge patient to home. - Resume previous diet. - Continue present medications. - Await pathology results. - Repeat upper endoscopy in 1 year for surveillance. - Return to GI office in 2 weeks. My findings are described in the full procedure note, which is enclosed. If I can be of further assistance, please feel free to contact me at . Sincerely, Otto Davidson, 08/14/2021 3:03:36 PM This report has been signed electronically.
--- NOTE | 2021-08-14 15:04 | OP.EGD_ITS ---
Patient Name: Eliot Patel Procedure Date: 08/14/2021 2:30 PM Date of : 1970 Age: 51 Procedure: Upper GI endoscopy Indications: Epigastric abdominal pain, Failure to respond to medical treatment Providers: Otto Davidson DO Referring MD: Otto Davidson DO Medicines: Propofol per Anesthesia Patient Profile: This is a 51 year old male. Refer to note in patient chart for documentation of history and physical. Patient has symptoms of acute abdominal cramping and acute global abdominal pain. Complications: No immediate complications. Procedure: Pre-Anesthesia Assessment: - Prior to the procedure, a History and Physical was performed, and patient medications and allergies were reviewed. The patient is competent. The risks and benefits of the procedure and the sedation options and risks were discussed with the patient. All questions were answered and informed consent was obtained. Patient identification and proposed procedure were verified by the physician in the pre-procedure area. Mental Status Examination: alert and oriented. Airway Examination: normal oropharyngeal airway and neck mobility. Respiratory Examination: clear to auscultation. CV Examination: normal. Prophylactic Antibiotics: The patient does not require prophylactic antibiotics. Prior Anticoagulants: The patient has taken no previous anticoagulant or antiplatelet agents. ASA Grade Assessment: II - A patient with mild systemic disease. After reviewing the risks and benefits, the patient was deemed in satisfactory condition to undergo the procedure. The anesthesia plan was to use moderate sedation / analgesia (conscious sedation). Immediately prior to administration of medications, the patient was re-assessed for adequacy to receive sedatives. The heart rate, respiratory rate, oxygen saturations, blood pressure, adequacy of pulmonary ventilation, and response to care were monitored throughout the procedure. The physical status of the patient was re-assessed after the procedure. After obtaining informed consent, the endoscope was passed under direct vision. Throughout the procedure, the patient's blood pressure, pulse, and oxygen saturations were monitored continuously. The Endoscope was introduced through the mouth, and advanced to the second part of duodenum. The upper GI endoscopy was accomplished without difficulty. The patient tolerated the procedure well. Moderate Sedation: Moderate (conscious) sedation was administered by the endoscopy nurse and supervised by the endoscopist. The patient's oxygen saturation, heart rate, blood pressure and response to care were monitored. Total physician intraservice time was 15 minutes. Scope In: 2:43:54 PM Scope Out: 2:51:17 PM Total Procedure Duration Time 0 hours 7 minutes 23 seconds Findings: LA Grade C (one or more mucosal breaks continuous between tops of 2 or more mucosal folds, less than 75% circumference) esophagitis with no bleeding was found 34 to 35 cm from the incisors. Biopsies were taken with a cold forceps for histology. Verification of patient identification for the specimen was done. Estimated blood loss was minimal. The entire examined stomach was normal. Diffuse severely erythematous mucosa without active bleeding and with no stigmata of bleeding was found in the second portion of the duodenum. Patchy moderate inflammation characterized by congestion (edema), erosions, erythema and friability was found in the first portion of the duodenum. Biopsies were taken with a cold forceps for histology. Verification of patient identification for the specimen was done. Estimated blood loss was minimal. There was also a duodenal stricture at the first portion of the duodenum that was able to be transversed by the endoscope. Impression: - LA Grade C reflux esophagitis. Rule out Soares's esophagus. Biopsied. - Normal stomach. - Erythematous duodenopathy. - Duodenitis. Biopsied. Recommendation: - Discharge patient to home. - Resume previous diet. - Continue present medications. - Await pathology results. - Repeat upper endoscopy in 1 year for surveillance. - Return to GI office in 2 weeks. Procedure Code(s): --- Professional --- 86265, Esophagogastroduodenoscopy, flexible, transoral; with biopsy, single or multiple G0500, Moderate sedation services provided by the same physician or other qualified health care taker performing a gastrointestinal endoscopic service that sedation supports, requiring the presence of an independent trained observer to assist in the monitoring of the patient's level of consciousness and physiological status; initial 15 minutes of intra-service time; patient age 5 years or older (additional time may be reported with 84167, as appropriate) CPT copyright 2017 [employer]. All rights reserved. The codes documented in this report are preliminary and upon emerging technologies director review may be revised to meet current compliance requirements. Otto Davidson DO 08/14/2021 3:03:36 PM This report has been signed electronically. Number of Addenda: 1 Note Initiated On: 08/14/2021 2:30 PM Addendum Number: 1 Addendum Date: 06/20/2022 4:50:05 PM MAC was used instead of moderate sedation for this patient. Otto Davidson DO 06/20/2022 4:50:09 PM This report has been signed electronically.
[2021-08-14 15:20] VITALS: BP 121/75; BP 146/81; PULSE 56; RESP 16; O2SAT 98
--- NOTE | 2021-08-14 15:21 | SUR.PHASEI ---
BP cuff had a leak ; reason for >5min VS in PACU. Patient cont monitored and VSS.
[2021-08-14 15:22] VITALS: BP 132/75; BP 146/81; PULSE 48; RESP 16; TEMP 35.9; O2SAT 98
[2021-08-14 15:40] VITALS: BP 146/81
== END 2021-08-14 15:55 | disposition home or self-care (01) ==
LOC: EN 12:42 → AC 12:42
PROVIDERS: Referring Provider Internal Medicine Gastroenterology; Visit Provider Internal Medicine Gastroenterology
PROC: 0DJ08ZZ Inspection of Upper Intestinal Tract, Via Natural or Artificial Opening Endoscopic (ICD-10-PCS; CPT 43235; principal; 2021-08-14 13:40)
DX: K21.00 Gastro-esophageal reflux disease with esophagitis, without bleeding (principal); K22.70 Barrett's esophagus without dysplasia; K31.89 Other diseases of stomach and duodenum; F17.200 Nicotine dependence, unspecified, uncomplicated; F32.A Depression, unspecified; F41.9 Anxiety disorder, unspecified; F20.9 Schizophrenia, unspecified; D64.9 Anemia, unspecified; K75.9 Inflammatory liver disease, unspecified; Z79.899 Other long term (current) drug therapy
CPT/HCPCS: 43239; 87426; 88305; 88313; 88341; 88342; C9803; J7120; J2405

== ENCOUNTER → 2021-08-22 07:55 | Outpatient (CLI) | payer MEDICARE, SELFPAY ==
[2021-08-21 09:04] VITALS: BP 119/73; BP 120/73; BP 137/71; PULSE 54; PULSE 60; PULSE 61; RESP 14; RESP 18; RESP 21; O2SAT 20; O2SAT 92; O2SAT 99
[2021-08-22] VITALS (8 sets, daily range): BP systolic 126–143; BP diastolic 75–90; PULSE 53–139; RESP 16–23; TEMP 36.6; O2SAT 94–96; BMI 42.5
--- NOTE | 2021-08-22 | LIVB_PTH ---
PATIENT: ANGELITA KRUSE LOC: [place] U#:[id number] AGE/SX: 55/M ROOM: RE08/22/[address]: Dr. Otto Davidson DO : 1970 BED: DIS: SPEC #: [id number] RECD: 08/22/21 11:42 STATUS: GLENROY DOC #: [id number] EVE: 08/22/21 00:[address]: Otto Davidson DEPT: SURGICAL PATHOLOGY RECD BY: Ji Jaimes ENTERED: 08/22/21 11:43 SP TYPE: LIVER BX OTHR DR: No Primary Care Phys Tissues: Liver, NOS Procedures: PAS with Diastase (control) Trichrome (control) Special Stain Group II PAS Stain (control) Surgery Specimen Level V Retic (control) Iron Stain (control) HEADER OPERATION: CT-guided liver biopsy PRE-OP DIAGNOSIS: Hepatitis TISSUE SUBMITTED: Left lobe liver 18-gauge core x3 MICROSCOPIC DIAGNOSIS Left lobe of liver, core biopsy: Macrovesicular steatosis. No evidence of cirrhosis. See comment. AM:jama 08/23/2021 COMMENT Iron stain with matched control revealed increased iron uptake in hepatic parenchymal cells (2/4). Trichrome stain with matched control reveals stained uptake in periportal areas without cirrhosis. PAS stain with and without diastase does not reveal an accumulation of abnormal proteins. Reticulin stain reveals normal hepatic parenchymal architecture. All matched controls are appropriate. MICROSCOPIC DESCRIPTION Slides are reviewed. GROSS DESCRIPTION Received in fixative is one container labeled with the patient's name and designated liver biopsy. The specimen consists of three elongated fragments of howard soft tissue each measuring 1.5 cm in length and 0.1 cm in diameter. The specimen is totally submitted in one cassette. / MALGORZATA:jama 08/22/21 TC:3 CPT: 85067, 00457 x5
--- NOTE | 2021-08-22 07:55 | MRI_ITS ---
Abdominal MRI and MRCP 08/22/2021 10:59 AM COMPARISON: CT 07/24/2021 CLINICAL HISTORY: jaundice TECHNIQUE: Multiplanar T1 and T2 weighted images were obtained through the abdomen. In addition, MRCP was performed. FINDINGS: Liver: Diffuse hepatic steatosis. Gallbladder: Unremarkable Bile Ducts: Unremarkable Pancreas: Unremarkable Spleen: Unremarkable Adrenal Glands: Unremarkable Kidneys: Simple right lower pole renal cyst. GI Tract: Unremarkable Lymphadenopathy: Absent Ascites: Absent Bones: No suspicious lesions MRI/MRCP Abdomen without Contrast IMPRESSION: Diffuse hepatic steatosis. No other abnormalities. Electronically Signed: Brandon Mai MD at 21:03 EDT Tel , Service support ,
--- NOTE | 2021-08-22 07:58 | CT_ITS ---
PROCEDURE: CT DIRECTED CORE LIVER BIOPSY INDICATION: Male, 51 years old. Jaundice PHYSICIAN: Dr. NATA Ignacio CONSENT: Written informed consent was obtained having explained the risks, benefits and alternatives in detail with the patient who accepted the risks and agreed to proceed. Laboratory review and clinical assessment was performed. CONSCIOUS SEDATION PROTOCOL: The Drugs used were: 2 mg Versed, IV., and 50 mcg Fentanyl, IV. The sedation time was: 9 minutes. Conscious sedation was started at 9:09 AM and terminated 9:18 AM. The conscious sedation protocol was independently monitored. RADIATION DOSAGE (If Supplied By Facility): CTDIvol = ( 25.73 ) mGy, DLP = ( 742.57 ) mGycm Individualized dose optimization techniques were used for this CT. TECHNIQUE: Using CT image guidance with image documentation, a suitable location in the left lobe of the liver was identified. Using an anterior approach, puncture of the liver was uneventful with an 18-gauge core needle system. 3, 18-gauge core samples were obtained, and submitted in formalin to the pathologist for further assessment. Followup CT scan revealed no distinct sequelae. CT/Biopsy/Inj or Needle Placement IMPRESSION: 1. CT directed core needle biopsy of the liver, using CT image guidance with image documentation as described. 2. Conscious Sedation protocol utilized with independent monitoring. Electronically Signed: Rosalio Dowling MD at 9:45 EDT , Service support ,
[2021-08-22] MEDS: Midazolam 2 MG/2 ML Syringe IV (09:02)
[2021-08-22] MEDS: fentaNYL 100 MCG/2 ML Ampul IV (09:04)
[2021-08-22] MEDS: 0.9% Saline Lock 10 ML Syringe IV (09:07)
[2021-08-22] MEDS: Lidocaine 2% (20 ml mdv) 20 ML Vial INFILT (09:51)
== END | disposition home or self-care (01) ==
PROVIDERS: Referring Provider Internal Medicine Gastroenterology; Visit Provider Internal Medicine Gastroenterology
DX: R17 Unspecified jaundice (principal)
CPT/HCPCS: 47000; 74181; 77012; 88307; 88313; J7040; A4216

== ENCOUNTER → 2021-10-18 11:56 | Outpatient (CLI) | payer MEDICARE, SELFPAY ==
--- NOTE | 2021-10-18 11:44 | US_ITS ---
STUDY: ABDOMINAL ULTRASOUND - ELASTOGRAPHY REASON FOR VISIT: Male, 51 years old. HANNA. TECHNIQUE: Liver stiffness measurements were obtained on a [employer] RS 85 ultrasound machine using a CA 1-7 probe following the SRU guidelines. 3 measurements were obtained using a 2-D-SWE method. The IQR/M was 21% suggesting a quality data set. TECHNICAL QUALITY: Adequate. COMPARISON: Comparison is made with prior study done earlier today. FINDINGS: Liver: There is fatty infiltration of the liver. Median liver stiffness measured 7.2 kPa. US/Elastography Parenchyma/Organ IMPRESSION: Liver stiffness measures 7.2 kPa compatible with F2 Metavir score. Electronically Signed: Rosalio Dowling MD at 10:40 EST , Service support ,
--- NOTE | 2021-10-18 11:49 | US_ITS ---
STUDY: ABDOMINAL ULTRASOUND - RIGHT UPPER QUADRANT REASON FOR VISIT: Male, 51 years old NONALCOHOLIC STEATOHEPATITIS TECHNIQUE: Ultrasound evaluation of the right upper quadrant was performed with real-time and static white-scale imaging. TECHNICAL QUALITY: Adequate. COMPARISON: None. FINDINGS: Liver: The liver is enlarged and measures 21 cm. There is increased echogenicity consistent with fatty infiltration. The bile ducts are within normal limits. There is hepatic color flow. The direction of portal flow is hepatopetal. There is no demonstrated mass lesion. Gallbladder: Normal distended gallbladder. The gallbladder wall measures 2.2 mm. There is a negative sonographic Young''s sign. There is no pericholecystic fluid. There are no gallstones. Sludge is seen within the gallbladder lumen. Common Bile Duct (C.B.D.): The common bile duct measures 4.4 mm. Pancreas: Normal size of the head, body and tail of the pancreas. There is normal echogenicity of the pancreas. There is no demonstrated pancreatic mass or cyst. Right Kidney: Normal size of the right kidney. The right kidney measures 10.7 cm x 5.9 cm x 6.1 cm. Normal renal cortex. The right cortex measures 1.4 cm. There is no demonstrated renal mass or cyst. There is no right hydronephrosis. US/Abdomen Limited IMPRESSION: Hepatomegaly and fatty infiltration of the liver. Sludge is seen within the gallbladder lumen. Electronically Signed: Rosalio Dowling MD at 10:41 EST , Service support ,
== END ==
PROVIDERS: Referring Provider Nurse Practitioner Adult Health; Visit Provider Nurse Practitioner Adult Health
DX: K75.81 Nonalcoholic steatohepatitis (NASH) (principal); E83.110 Hereditary hemochromatosis
CPT/HCPCS: 76705; 76981

== ENCOUNTER → 2022-03-01 | Outpatient (CLI) | payer MEDICARE, SELFPAY ==
[2022-03-01 15:28] LABS: Absolute Lymphocyte Count 1.31 X10^3/uL (0.83-4.51); Absolute Neutrophil Count 5.7 X10^3/uL (2.0-7.7); Basophil# 0.02 X10^3/uL; Basophil% 0.3 % (0-1); Eosinophil# 0.06 X10^3/uL; Eosinophils% 0.8 % (0-5); Hematocrit 44.3 % (40-54); Hemoglobin 15.2 g/dL (13.0-16.5); Lymphocyte # 1.31 X10^3/ul (0.83-4.51); Lymphocyte % 17.6 % (19-41); Mean Corp Hgb Conc 34.3 g/dL (32-36); Mean Corpuscular Hgb 31.7 pg (27.0-32.0); Mean Corpuscular Volume 92.5 fL (80-94); Mean Platelet Vol. 9.6 fl (6.2-12.0); Monocyte# 0.32 X10^3/uL; Monocyte% 4.3 % (0-10); NRBC Flagged by Analyzer 0.3 % (0-5); Neutrophil % 76.7 % (47-70); Platelet Count 282 K/mm3 (150-450); RBC Distribution Width CV 13.5 % (11.6-14.6); RBC Distribution Width SD 46.4 fl (35.1-43.9); Red Blood Count 4.79 M/mm3 (4.6-6.2); White Blood Count 7.4 K/mm3 (4.4-11.0)
[2022-03-01 15:59] LABS: AST(SGOT) 14 U/L (15-37); Alanine Aminotransfer ALT/SGPT 21 U/L (16-61); Albumin, Serum 3.9 g/dL (3.2-5.0); Alkaline Phosphatase 113 U/L (45-117); Anion Gap 9 (5-15); BUN 10 mg/dL (7-18); BUN/Creat Ratio 7.6 RATIO (10-20); Calcium,Total 8.9 mg/dL (8.5-10.1); Chloride 106 mmol/L (98-107); Cholesterol 156 mg/dL (200); Creatinine, Serum 1.31 mg/dL (0.70-1.30); EST Glomerular Filtration Rate 61 mL/min (>60); Est Glom Filt Rate - Afr Amer 74 mL/min (>60); Globulin 4.1 g/dL (2.2-4.2); Glucose 119 mg/dL (74-106); High Density Lipoprotein 41 mg/dL; Potassium 3.5 mmol/L (3.5-5.1); Sodium Level 137 mmol/L (136-145); Thyroid Stim Hormone (TSH) 5.63 uIU/mL (0.358-3.74); Triglycerides 104 mg/dL
[2022-03-03 08:22] LABS: LDL, Direct 120295 99 mg/dL (0-99)
== END | disposition home or self-care (01) ==
PROVIDERS: Visit Provider Internal Medicine Gastroenterology
DX: K75.9 Inflammatory liver disease, unspecified (principal); K22.70 Barrett's esophagus without dysplasia; E66.9 Obesity, unspecified; K75.81 Nonalcoholic steatohepatitis (NASH); D64.9 Anemia, unspecified
CPT/HCPCS: 36415; 80053; 80061; 82465; 83718; 83721; 84443; 84478; 85025

== ENCOUNTER → 2022-06-13 | Outpatient (CLI) | payer MEDICARE, SELFPAY ==
[2022-06-13 11:42] LABS: Hemoglobin A1c 4.9 % (3.8-5.6)
[2022-06-13 12:04] LABS: ALB/GLOB Ratio 0.9 RATIO (0.9-2.4); AST(SGOT) 14 U/L (15-37); Alanine Aminotransfer ALT/SGPT 19 U/L (16-61); Albumin, Serum 3.6 g/dL (3.2-5.0); Alkaline Phosphatase 117 U/L (45-117); Anion Gap 6 (5-15); BUN 18 mg/dL (7-18); BUN/Creat Ratio 14.1 RATIO (10-20); Calcium,Total 9.1 mg/dL (8.5-10.1); Chloride 106 mmol/L (98-107); Creatinine, Serum 1.28 mg/dL (0.70-1.30); EST Glomerular Filtration Rate 63 mL/min (>60); Est Glom Filt Rate - Afr Amer 76 mL/min (>60); Free T3 2.3 pg/mL (2.18-3.98); Glucose 119 mg/dL (74-106); Potassium 3.7 mmol/L (3.5-5.1); Protein, Total 7.6 g/dL (6.4-8.2); Sodium Level 138 mmol/L (136-145)
[2022-06-14 11:23] LABS: Absolute Lymphocyte Count 1.23 X10^3/uL (0.83-4.51); Absolute Neutrophil Count 6.3 X10^3/uL (2.0-7.7); Basophil# 0.04 X10^3/uL; Basophil% 0.5 % (0-1); Eosinophil# 0.02 X10^3/uL; Eosinophils% 0.3 % (0-5); Hematocrit 42.6 % (40-54); Hemoglobin 14.7 g/dL (13.0-16.5); Lymphocyte # 1.23 X10^3/ul (0.83-4.51); Lymphocyte % 15.5 % (19-41); Mean Corp Hgb Conc 34.5 g/dL (32-36); Mean Corpuscular Hgb 31.2 pg (27.0-32.0); Mean Corpuscular Volume 90.4 fL (80-94); Mean Platelet Vol. 10.1 fl (6.2-12.0); Monocyte# 0.31 X10^3/uL; Monocyte% 3.9 % (0-10); NRBC Flagged by Analyzer 0 % (0-5); Neutrophil # 6.32 X10^3/uL (2.7-7.7); Neutrophil % 79.4 % (47-70); Platelet Count 256 K/mm3 (150-450); RBC Distribution Width CV 14.2 % (11.6-14.6); RBC Distribution Width SD 46.9 fl (35.1-43.9); Red Blood Count 4.71 M/mm3 (4.6-6.2)
== END | disposition home or self-care (01) ==
PROVIDERS: Referring Provider Internal Medicine Gastroenterology; Visit Provider Internal Medicine Gastroenterology
DX: K75.9 Inflammatory liver disease, unspecified (principal); E83.110 Hereditary hemochromatosis; D64.9 Anemia, unspecified; E66.9 Obesity, unspecified; K75.81 Nonalcoholic steatohepatitis (NASH)
CPT/HCPCS: 36415; 80053; 83036; 84439; 84443; 84481; 85025

== ENCOUNTER → 2023-06-09 | Outpatient (CLI) | payer MEDICARE, SELFPAY ==
[2023-06-09 09:57] LABS: Absolute Lymphocyte Count 2.06 X10^3/uL (0.83-4.51); Absolute Neutrophil Count 3.7 X10^3/uL (2.0-7.7); Basophil# 0.02 X10^3/uL; Basophil% 0.3 % (0-1); Eosinophil# 0.13 X10^3/uL; Eosinophils% 2.1 % (0-5); Hematocrit 43.8 % (40-54); Hemoglobin 14.9 g/dL (13.0-16.5); Lymphocyte # 2.06 X10^3/ul (0.83-4.51); Lymphocyte % 32.8 % (19-41); Mean Corpuscular Hgb 31.2 pg (27.0-32.0); Mean Corpuscular Volume 91.8 fL (80-94); Mean Platelet Vol. 9.2 fl (6.2-12.0); Monocyte# 0.32 X10^3/uL; Monocyte% 5.1 % (0-10); NRBC Flagged by Analyzer 0 % (0-5); Neutrophil # 3.74 X10^3/uL (2.7-7.7); Neutrophil % 59.4 % (47-70); Platelet Count 235 K/mm3 (150-450); RBC Distribution Width CV 13.8 % (11.6-14.6); RBC Distribution Width SD 46.6 fl (35.1-43.9); Red Blood Count 4.77 M/mm3 (4.6-6.2); White Blood Count 6.3 K/mm3 (4.4-11.0)
[2023-06-09 10:05] LABS: Prothrombin Time (Protime)PT. 12.9 SECONDS (11.7-14.9)
[2023-06-09 10:37] LABS: Erythrocyte Sedimentation Rate 18 mm/hr (0-20)
[2023-06-09 11:45] LABS: ALB/GLOB Ratio 0.8 RATIO (0.9-2.4); AST(SGOT) 12 U/L (15-37); Alanine Aminotransfer ALT/SGPT 18 U/L (16-61); Albumin, Serum 3.5 g/dL (3.2-5.0); Alkaline Phosphatase 129 U/L (45-117); Anion Gap 6 (5-15); BUN 16 mg/dL (7-18); BUN/Creat Ratio 10.7 RATIO (10-20); Chloride 106 mmol/L (98-107); Cholesterol 144 mg/dL (200); Creatinine, Serum 1.49 mg/dL (0.70-1.30); EST Glomerular Filtration Rate 52 mL/min (>60); Est Glom Filt Rate - Afr Amer 63 mL/min (>60); Ferritin 194 ng/mL (26-388); Free T3 2.3 pg/mL (2.18-3.98); Globulin 4.2 g/dL (2.2-4.2); Glucose 111 mg/dL (74-106); High Density Lipoprotein 43 mg/dL; Iron 86 ug/dL (65-175); Iron Binding Capacity,Total 303 ug/dL (250-450); LDH 143 U/L (87-241); PERCENT IRON SATURATION 28.4 % (15.0-55.0); Potassium 3.5 mmol/L (3.5-5.1); Prolactin 27.6 ng/mL; Protein, Total 7.7 g/dL (6.4-8.2); Sodium Level 138 mmol/L (136-145); T4 Free Direct 0.94 ng/dL (0.76-1.46); Thyroid Stim Hormone (TSH) 9.06 uIU/mL (0.358-3.74); Triglycerides 79 mg/dL; Very Low Density Lipoprotein 16 mg/dL (5-40)
== END | disposition home or self-care (01) ==
LOC: LAB 09:09
PROVIDERS: Internal Medicine Gastroenterology; Referring Provider Registered Nurse; Visit Provider Registered Nurse
DX: F25.9 Schizoaffective disorder, unspecified (principal); F19.10 Other psychoactive substance abuse, uncomplicated; E83.110 Hereditary hemochromatosis; R53.83 Other fatigue; K22.70 Barrett's esophagus without dysplasia; E66.9 Obesity, unspecified; K75.81 Nonalcoholic steatohepatitis (NASH); Z79.899 Other long term (current) drug therapy
CPT/HCPCS: 36415; 80053; 80061; 82728; 83540; 83550; 83615; 84146; 84439; 84443; 84481; 85025; 85610; 85652; 86140

== ENCOUNTER 2023-12-01 07:05 | Day surgery (SDC) | payer MEDICARE, SELFPAY ==
[2023-12-01] MEDS: Lactated Ringers 1,000 ML 15 ML IV (07:32)
[2023-12-01 07:33] VITALS: BP 153/85; PULSE 94; RESP 18; TEMP 36.3; O2SAT 99; BMI 50.0
--- NOTE | 2023-12-01 07:33 | HP.PCM_ITS ---
History and Physical Date of Admission: 12/01/23 Anemia and hemochromatosis Details: ANGELITA KRUSE, is a 53 M who presents to the office today for follow up. Wvaluation of CALI, hereditary hemochromatosis and obesity. Psychiatric history includes schizophrenia (diagnosed at age 35) and depression. Follows with Dr. Barrera, hematology for chronic macrocytic anemia and hereditary hemochromatosis double heterozygous C282Y/H63D; there is no active treatment at this time, just monitoring. *BGI established 08.02.21 for abdominal pain and jaundice appearance for which he was hospitalized 07.23.21. Biochemical hereditary hemochromatosis ? two mutations identified C282Y and H63D EGD 08.14.21 LA Grade C reflux esophagitis and positive for Soares?s esophagus. MRCP performed 08.22.21 with findings of diffuse hepatic steatosis. Liver Bx 08.23.21. Macrovesicular steatosis. No evidence of cirrhosis. Hematology consult 08.22.21 for anemia and hereditary hemochromatosis with biochemical workup. OV 08.29.21 Start actos and ursodiol. OV 10.08.21 US and elastography abd 10.18.21 liver measures 21cm with increased echogenicity. Sludge seen within gallbladder lumen. Liver stiffness measures 7.2 kPa correlating with F2. Hematology OV 11.28.22 for anemia and hereditary hemochromatosis with recommendati on to monitor. OV 12.09.22 Angelita feels he is doing well at the moment. No active symptoms requiring improvement. Weight Height 5?9? 11..21 278 lbs 11.29.21 270 lbs 01.04.22 296 lbs BMI 43 . 297 lbs 06.13.22 300 lbs BMI 44 12.09.22 303 lbs 06.09.23 326 lbs 09.16.23 333 lbs OV 06.09.23 Pt reports no changes since last visit. Continues to take medication as prescribed. Has not made any lifestyle changes in regards to his obesity. Does not have any other complaints. OV 09.16.23- Pt reports no change since last visit. Denies any abdominal pain, changes to bowels, swelling, dizziness. Patient again weight about 8 pounds since last visit in May 2023. Denies heartburn, acid reflux, burping or other dyspeptic symptoms. ROS Const Constitutional: No fatigue ENT ENT: No difficulty swallowing Gastro GI: No abdominal pain, belching, bloating, change in bowel habits, change in stool character, coffee ground emesis, constipation, cramping, diarrhea, heartburn, difficulty swallowing, feeling full early, excessive flatus, incontinent of stools, Vomiting blood/hematemesis, Blood in stool, loose stools, Black,tarry stools, nausea/dyspepsia, pain with swallowing, vomiting or other Musc Musculoskeletal: No joint pain Skin Skin: No yellowing of the eye or itchy eyes Psych Psychiatric: No anxiety and No depression Endo Endocrine: No fatigue Aller/Imm Allergy/Immunologic: No itchy eyes Poncho/Lymp Hematologic/Lymphatic: No easy bleeding or easy bruising Exam Const General: cooperative, no acute distress and well developed Nutritional Appearance: obese Orientation: alert, awake and oriented x3 Other: BMI 49.1%, morbid obesity [facility] Head: normocephalic and atraumatic Nose: external nose normal Face and sinus: normal facial exam Mouth: moist mucous membranes Eyes Pupils: PERRL EOM: EOM intact bilaterally Neck Neck: normal visual inspection, no meningeal signs and trachea midline Carotids: no bruits Chest Chest palpation & inspection: normal inspection of the chest Resp Effort & Inspection: normal respiratory effort and symmetric chest movement Auscultation: Bilateral: Clear to Auscultation Cardio Palpation: normal PMI Rate: regular rate Rhythm: regular rhythm Heart Sounds: S1 normal and S2 normal GI Auscultation: normal bowel sounds Percussion: normal to percussion Palpation: soft, no hepatosplenomegaly and no guarding Other: Fat abdomen. Fluid thrill and shifting dullness negative. Hard to palpate but seems clinically no appreciable ascites. Spleen not palpable. General: bimanual renal exam normal bilaterally, bladder normal to inspection and bladder normal to palpation Musc Musculoskeletal: No joint tenderness, joint redness, joint warmth or decreased range of motion Thoracic/Lumbar Spine: thor and lumb spine abnorm to inspection Other: No pedal edema. Skin General: rashes and/or lesions noted, turgor normal and no erythema Wounds: wound noted Neuro General: patient alert, patient awake, patient oriented x3 and no focal motor deficits Speech: speech normal Motor: muscle tone normal throughout Extrem General: normal exam except as noted Psych Appearance: grossly normal Mood: congruent mood Affect: normal affect Attitude: cooperative Quality Reporting Tobacco Screening ([facility] 138) Smoking Status: Never smoker Assessment and Plan Assessment and Plan (1) CALI (nonalcoholic steatohepatitis): Status: Chronic Plan: Patient remains on Actos along with vitamin D and a statin for his fatty liver disease in particular Cali. His hemoglobin A1c is down to 4.9 from 6.5. Glucose 111. Liver elastography in September 2021 shows fatty infiltration with median liver stiffness kPa. No demonstrated mass lesion. Normal biliary system with CBD 4.4 mm. Normal size and echogenicity of pancreas. No demonstrated pancreatic mass or cyst. Previous liver biopsy in August 2021 shows microvascular steatosis with no evidence of cirrhosis. Iron stain shows increased iron uptake in hepatic parenchymal cells 2/4. Repeat A1c, vitamin D and follow-up test ordered including liver ultrasound and elastography before next visit 3 months Patient has history of his schizophrenia and adherence to the diet, medications and lifestyle questionable. (2) Hereditary hemochromatosis: Status: Chronic Comment: Double heterozygous Plan: Patient is positive of C2 82 Y and H63D double heterozygous. He is supposed to follow with hematology Dr. Barrera but seems he has been stable only once. His ferritin and transferrin saturation last one, in May 2023 was in normal limit. (3) Barretts esophagus: Status: Chronic Plan: Continue PPI at delay. Need repeat EGD in December 2022. Biopsy was negative for dysplasia. (4) Obesity: Status: Chronic Qualifiers: Obesity classification: adult class 3 (BMI >= 40) Serious obesity comorbidity presence: without serious comorbidity Body mass index: BMI 45.0- 49.9 Plan: Fib 4 score 0.64 approximate fibrosis stage 0-I. Patient gaining weight, morbid obesity BMI 49.1 kg/m?. He gained about 8 pounds since last visit. Advised follow-up with plumber's helper to plan out the calorie intake in diet. Exercise encouraged. Patient is on Actos and will continue it. Orders: Orders ABD Limited w/ Elastography 3 Months E66.9 - Obesity, unspecified, E83.110 - Hereditary hemochromatosis, K75.81 - Nonalcoholic steatohepatitis (CALI) CBC W/Diff, Automated 3 Months E66.9 - Obesity, unspecified, K22.70 - Soares's esophagus without dysplasia, K75.81 - Nonalcoholic steatohepatitis (CALI), R17 - Unspecified jaundice Comprehensive Metabolic Profil 3 Months E66.9 - Obesity, unspecified, K22.70 - Soares's esophagus without dysplasia, K75.81 - Nonalcoholic steatohepatitis (CALI) Prothrombin Time w/INR 3 Months E66.9 - Obesity, unspecified, K22.70 - Soares's esophagus without dysplasia, K75.81 - Nonalcoholic steatohepatitis (CALI), R17 - Unspecified jaundice CRP 3 Months E66.9 - Obesity, unspecified, K22.70 - Soares's esophagus without dysplasia, K75.81 - Nonalcoholic steatohepatitis (CALI) Vitamin D,25 Hydroxy 3 Months E66.9 - Obesity, unspecified, K22.70 - Soares's esophagus without dysplasia, K75.81 - Nonalcoholic steatohepatitis (CALI), R17 - Unspecified jaundice AFP, Tumor Marker 3 Months E66.9 - Obesity, unspecified, E83.110 - Hereditary hemochromatosis, K22.70 - Soares's esophagus without dysplasia, K75.81 - Nonal coholic steatohepatitis (CALI) Hemoglobin A1c 3 Months E66.9 - Obesity, unspecified, E83.110 - Hereditary hemochromatosis, K22.70 - Soares's esophagus without dysplasia, K75.81 - Nonalcoholic steatohepatitis (CALI) Lipid Profile 3 Months E66.9 - Obesity, unspecified, K22.70 - Soares's esophagus without dysplasia, K75.81 - Nonalcoholic steatohepatitis (CALI) I have examined the patient and the H&P has been reviewed. There are no clinical changes since date of exam.
[2023-12-01 07:44] LABS: Absolute Neutrophil Count 4.1 X10^3/uL (2.0-7.7); Basophil# 0.01 X10^3/uL; Basophil% 0.1 % (0-1); Eosinophil# 0.14 X10^3/uL; Eosinophils% 1.9 % (0-5); Hematocrit 45.7 % (40-54); Hemoglobin 14.9 g/dL (13.0-16.5); Lymphocyte % 37.6 % (19-41); Mean Corp Hgb Conc 32.6 g/dL (32-36); Mean Corpuscular Hgb 31.3 pg (27.0-32.0); Mean Platelet Vol. 9.6 fl (6.2-12.0); Monocyte# 0.33 X10^3/uL; Monocyte% 4.4 % (0-10); NRBC Flagged by Analyzer 0 % (0-5); Neutrophil # 4.14 X10^3/uL (2.7-7.7); Neutrophil % 55.7 % (47-70); Platelet Count 220 K/mm3 (150-450); RBC Distribution Width CV 14.3 % (11.6-14.6); RBC Distribution Width SD 50.5 fl (35.1-43.9); Red Blood Count 4.76 M/mm3 (4.6-6.2); White Blood Count 7.4 K/mm3 (4.4-11.0)
[2023-12-01 08:05] LABS: ALB/GLOB Ratio 0.9 RATIO (0.9-2.4); AST(SGOT) 16 U/L (15-37); Alanine Aminotransfer ALT/SGPT 22 U/L (16-61); Albumin, Serum 3.7 g/dL (3.2-5.0); Alkaline Phosphatase 144 U/L (45-117); Anion Gap 5 (5-15); BUN 16 mg/dL (7-18); BUN/Creat Ratio 10.9 RATIO (10-20); Calcium,Total 9.2 mg/dL (8.5-10.1); Chloride 107 mmol/L (98-107); Cholesterol 137 mg/dL (200); Creatinine, Serum 1.47 mg/dL (0.70-1.30); EST Glomerular Filtration Rate 53 mL/min (>60); Est Glom Filt Rate - Afr Amer 64 mL/min (>60); Globulin 4.1 g/dL (2.2-4.2); Glucose 119 mg/dL (74-106); High Density Lipoprotein 42 mg/dL; Potassium 3.7 mmol/L (3.5-5.1); Protein, Total 7.8 g/dL (6.4-8.2); Sodium Level 140 mmol/L (136-145); Triglycerides 81 mg/dL; Very Low Density Lipoprotein 16 mg/dL (5-40)
--- NOTE | 2023-12-01 08:15 | IMM_PTH ---
PATHOLOGY RESULTS PATIENT: ANGELITA KRUSE LOC: EN U#:[id number] AGE/SX: 53/M ROOM: RE12/01/[address]: Dr. Otto Davidson DO : 1970 BED: DIS: 12/01/2023 SPEC #: [id number] RECD: 12/01/23 15:05 STATUS: GLENROY REKesha #: [id number] EVE: 12/01/23 08:[address]: Otto Davidson DEPT: IMMUNOHISTOCHEMISTRY RECD BY: Shannon He ENTERED: 12/01/23 15:05 SP TYPE: IMMUNO OTHR DR: Dr. Sherry Barrera MD No Primary Care Phys Tissues: Stomach, NOS Procedures: H Pylori (initial) PHYSICIAN & INSTITUTION [place] [id number] SPECIMEN INFORMATION: Tissue Source: A - Gastric ulcer Clinical Info: HANNA, hereditary hemochromatosis Specimen Number: [id number] CPT code: 06590 METHODOLOGY: Deparaffinized sections of prefer/formalin-fixed tissue or PAP/DQ stained slides are incubated with monoclonal/polyclonal antibodies/oligonucleotide probes. Localization is made via biotin free immunoperoxidase method. Appropriate controls are performed and reacted as expected. Results on target cell population are indicated in the following table: RESULTS: ANTIBODY / CLONE RESULT Block A H Pylori (polyclonal) negative These tests were developed and their performance characteristics determined by [facility]. They may not have been cleared or approved by the U.S. Food and Drug Administration. The FDA has determined that such clearance or approval is not necessary. The above immunohistochemical/dualISH markers are ordered and reviewed by the Pathologist. INTERPRETATION: A. Gastric ulcer, biopsy: Negative for Helicobacter pylori organisms. MALGORZATA:jama 12/02/2023
--- NOTE | 2023-12-01 08:15 | EGD_PTH ---
PATHOLOGY RESULTS PATIENT: ANGELITA KRUSE LOC: EN U#:[id number] AGE/SX: 53/M ROOM: RE12/01/[address]: Dr. Otto Davidson DO : 1970 BED: DIS: 12/01/2023 SPEC #: [id number] RECD: 12/01/23 11:28 STATUS: GLENROY REKesha #: [id number] EVE: 12/01/23 08:[address]: Otto Davidson DEPT: SURGICAL PATHOLOGY RECD BY: Alyssia Crowe ENTERED: 12/01/23 11:28 SP TYPE: EGD BIOPSY JOSE G DR: Dr. Sherry Barrera MD No Primary Care Phys Tissues: Gastric mucous membrane Esophageal mucous membrane Procedures: Special Stain Group II Surgery Specimen Level IV Alcian Blue/PAS (control) HEADER OPERATION: EGD, biopsy PRE-OP DIAGNOSIS: HANNA, hereditary hemochromatosis TISSUE SUBMITTED: A - Gastric ulcer biopsy, B - Distal esophagus biopsy MICROSCOPIC DIAGNOSIS A. Gastric ulcer, biopsy: Moderate gastritis, congestion and reactive changes. See microscopic description and comment. B. Distal esophagus, biopsy: Fragments of gastroesophageal mucosa with mild chronic inflammation and reactive changes. Intestinal metaplasia (goblet cell metaplasia) not identified. See comment. SJ:rg 12/02/2023 COMMENT A. The results of immunohistochemistry for Helicobacter pylori will be reported separately ([id number]). B. Alcian blue/PAS stain with matched control is used in the evaluation of the specimen. This case has been reviewed in consultation with Dr. Nova who concurs with the above diagnosis. MICROSCOPIC DESCRIPTION Slides are reviewed. The specimen shows fragments of gastric mucosa with chronic inflammatory cell infiltrates in the lamina propria consisting of lymphocytes and plasma cells, consistent with moderate chronic gastritis. Mucosa also shows reactive epithelial changes, congestion and fibrosis on lamina propria. GROSS DESCRIPTION A - Received in fixative is one container labeled with the patient's name and designated gastric ulcer biopsy. The specimen consists of two irregular fragments of light howard soft tissue that in aggregate measure 0.6 x 0.3 x 0.1 cm. The specimen is totally submitted in one cassette. B - Received in fixative is one container labeled with the patient's name and designated distal esophagus biopsy. The specimen consists of two irregular fragments of light howard soft tissue that in aggregate measure 0.6 x 0.3 x 0.1 cm. The specimen is totally submitted in one cassette. / SJ:rg 12/01/2023 TC:3 CPT: 27946 x2, 10403
[2023-12-01 08:24] LABS: Ferritin 237 ng/mL (26-388); Iron 83 ug/dL (65-175); Iron Binding Capacity,Total 330 ug/dL (250-450); PERCENT IRON SATURATION 25.2 % (15.0-55.0)
[2023-12-01 08:40] LABS: Vitamin D,25 Hydroxy 7.9 ng/mL
[2023-12-01 08:43] LABS: Prothrombin Time (Protime)PT. 13.5 SECONDS (11.7-14.9)
[2023-12-01 08:45] VITALS: BP 126/77; BP 153/85; PULSE 61; RESP 16; TEMP 36.1; O2SAT 93
--- NOTE | 2023-12-01 08:48 | OP.CCLET_ITS ---
12/01/2023 No Primary Care Physician Re : Upper GI endoscopy procedure for Eliot Patel Dear Care Physician This procedure was performed on Friday, December 01, 2023. My impressions and recommendations are as follows: Impressions : - Esophageal mucosal changes suggestive of Soares's esophagus. Biopsied. - Non-bleeding gastric ulcer with no stigmata of bleeding. Biopsied. - No gross lesions in the second portion of the duodenum. Recommendations : - Discharge patient to home. - Resume previous diet. - Continue present medications. - Await pathology results. - Repeat upper endoscopy in 1 year for surveillance. My findings are described in the full procedure note, which is enclosed. If I can be of further assistance, please feel free to contact me at . Sincerely, Otto Davidson, 12/01/2023 8:47:51 AM This report has been signed electronically.
--- NOTE | 2023-12-01 08:48 | OP.EGD_ITS ---
Patient Name: Eliot Patel Procedure Date: 12/01/2023 8:25 AM Date of : 1970 Age: 53 Procedure: Upper GI endoscopy Indications: Epigastric abdominal pain, Heartburn, Peptic ulcer Providers: Otto Davidson DO Medicines: Monitored Anesthesia Care Patient Profile: This is a 53 year old male. Refer to note in patient chart for documentation of history and physical. Patient has symptoms of chronic epigastric abdominal pain and chronic nausea. Complications: No immediate complications. Procedure: Pre-Anesthesia Assessment: - Prior to the procedure, a History and Physical was performed, and patient medications and allergies were reviewed. The patient is competent. The risks and benefits of the procedure and the sedation options and risks were discussed with the patient. All questions were answered and informed consent was obtained. Patient identification and proposed procedure were verified by the physician in the pre-procedure area. Mental Status Examination: alert and oriented. Airway Examination: normal oropharyngeal airway and neck mobility. Respiratory Examination: clear to auscultation. CV Examination: normal. Prophylactic Antibiotics: The patient does not require prophylactic antibiotics. Prior Anticoagulants: The patient has taken no anticoagulant or antiplatelet agents. ASA Grade Assessment: III - A patient with severe systemic disease. After reviewing the risks and benefits, the patient was deemed in satisfactory condition to undergo the procedure. The anesthesia plan was to use monitored anesthesia care (MAC). Immediately prior to administration of medications, the patient was re-assessed for adequacy to receive sedatives. The heart rate, respiratory rate, oxygen saturations, blood pressure, adequacy of pulmonary ventilation, and response to care were monitored throughout the procedure. The physical status of the patient was re-assessed after the procedure. After obtaining informed consent, the endoscope was passed under direct vision. Throughout the procedure, the patient's blood pressure, pulse, and oxygen saturations were monitored continuously. The Endoscope was introduced through the mouth, and advanced to the second part of duodenum. The upper GI endoscopy was accomplished without difficulty. The patient tolerated the procedure well. Scope In: 8:36:47 AM Scope Out: 8:41:11 AM Total Procedure Duration Time 0 hours 4 minutes 24 seconds Findings: The esophagus and gastroesophageal junction were examined with white light and narrow band imaging (NBI) from a forward view and retroflexed position. There were esophageal mucosal changes suggestive of Soares's esophagus. These changes involved the mucosa at the upper extent of the gastric folds (42 cm from the incisors) extending to the Z-line (39 cm from the incisors). [place]-colored mucosa was present. The maximum longitudinal extent of these esophageal mucosal changes was 2 cm in length. Mucosa was biopsied with a cold forceps for histology in a targeted manner at intervals of 1 cm in the lower third of the esophagus. One specimen bottle was sent to pathology. Verification of patient identification for the specimen was done. Estimated blood loss was minimal. One non-bleeding cratered gastric ulcer with no stigmata of bleeding was found at the pylorus. The lesion was 6 mm in largest dimension. Biopsies were taken with a cold forceps for histology. Verification of patient identification for the specimen was done. Estimated blood loss was minimal. Biopsies were taken with a cold forceps for Helicobacter pylori testing. Verification of patient identification for the specimen was done. Estimated blood loss was minimal. No gross lesions were noted in the second portion of the duodenum. Impression: - Esophageal mucosal changes suggestive of Soares's esophagus. Biopsied. - Non-bleeding gastric ulcer with no stigmata of bleeding. Biopsied. - No gross lesions in the second portion of the duodenum. Recommendation: - Discharge patient to home. - Resume previous diet. - Continue present medications. - Await pathology results. - Repeat upper endoscopy in 1 year for surveillance. Procedure Code(s): --- Professional --- 14069, Esophagogastroduodenoscopy, flexible, transoral; with biopsy, single or multiple CPT copyright 2021 [employer]. All rights reserved. The codes documented in this report are preliminary and upon senior billing consultant review may be revised to meet current compliance requirements. Otto Davidson DO 12/01/2023 8:47:51 AM This report has been signed electronically. Number of Addenda: 0 Note Initiated On: 12/01/2023 8:25 AM
[2023-12-01 08:50] VITALS: BP 136/89; BP 153/85; PULSE 52; RESP 16; O2SAT 92
[2023-12-01 08:56] VITALS: BP 137/86; BP 153/85; PULSE 52; RESP 16; TEMP 36.1; O2SAT 96
[2023-12-01 09:23] VITALS: BP 153/85
[2023-12-02 08:12] LABS: AFP, Tumor Marker 7.9 ng/mL (0.0-8.4)
== END 2023-12-01 09:24 | disposition home or self-care (01) ==
LOC: EN 07:09 → AC 07:10
PROVIDERS: Internal Medicine; Internal Medicine Hematology & Oncology; Visit Provider Internal Medicine Gastroenterology
PROC: 0DJ08ZZ Inspection of Upper Intestinal Tract, Via Natural or Artificial Opening Endoscopic (ICD-10-PCS; CPT 43235; principal; 2023-12-01 08:10)
DX: K29.70 Gastritis, unspecified, without bleeding (principal); F20.9 Schizophrenia, unspecified; E66.01 Morbid (severe) obesity due to excess calories; Z68.42 Body mass index [BMI] 45.0-49.9, adult; E83.110 Hereditary hemochromatosis; K25.9 Gastric ulcer, unspecified as acute or chronic, without hemorrhage or perforation; K75.81 Nonalcoholic steatohepatitis (NASH); R10.13 Epigastric pain; K22.70 Barrett's esophagus without dysplasia; D64.9 Anemia, unspecified; K21.00 Gastro-esophageal reflux disease with esophagitis, without bleeding; Z79.899 Other long term (current) drug therapy
CPT/HCPCS: 43239; 36415; 80053; 80061; 82105; 82306; 82728; 83036; 83540; 83550; 85025; 85610; 86140; 88305; 88313; 88342; J7120; J2405

== ENCOUNTER → 2024-05-28 | Outpatient (CLI) | payer MEDICARE, SELFPAY ==
[2024-05-28 09:46] LABS: Absolute Lymphocyte Count 2.08 X10^3/uL (0.83-4.51); Absolute Neutrophil Count 3.6 X10^3/uL (2.0-7.7); Basophil# 0.02 X10^3/uL; Basophil% 0.3 % (0-1); Eosinophil# 0.24 X10^3/uL; Eosinophils% 3.8 % (0-5); Hematocrit 40.9 % (40-54); Hemoglobin 14.1 g/dL (13.0-16.5); Lymphocyte # 2.08 X10^3/ul (0.83-4.51); Lymphocyte % 33.3 % (19-41); Mean Corp Hgb Conc 34.5 g/dL (32-36); Mean Corpuscular Volume 89.9 fL (80-94); Mean Platelet Vol. 9.1 fl (6.2-12.0); Monocyte# 0.25 X10^3/uL; NRBC Flagged by Analyzer 0 % (0-5); Neutrophil # 3.64 X10^3/uL (2.7-7.7); Neutrophil % 58.3 % (47-70); Platelet Count 225 K/mm3 (150-450); RBC Distribution Width CV 15.1 % (11.6-14.6); RBC Distribution Width SD 49.3 fl (35.1-43.9); Red Blood Count 4.55 M/mm3 (4.6-6.2); White Blood Count 6.3 K/mm3 (4.4-11.0)
[2024-05-28 10:00] LABS: International Normalized Ratio 0.9; Prothrombin Time (Protime)PT. 12.6 SECONDS (11.7-14.9)
[2024-05-28 10:29] LABS: ALB/GLOB Ratio 0.8 RATIO (0.9-2.4); AST(SGOT) 16 U/L (15-37); Alanine Aminotransfer ALT/SGPT 16 U/L (16-61); Albumin, Serum 3.4 g/dL (3.2-5.0); Alkaline Phosphatase 116 U/L (45-117); Anion Gap 6 (5-15); BUN 12 mg/dL (7-18); BUN/Creat Ratio 8.8 RATIO (10-20); Calcium,Total 8.9 mg/dL (8.5-10.1); Chloride 111 mmol/L (98-107); Cholesterol 145 mg/dL (200); Creatinine, Serum 1.37 mg/dL (0.70-1.30); EST Glomerular Filtration Rate 58 mL/min (>60); Est Glom Filt Rate - Afr Amer 70 mL/min (>60); Glucose 112 mg/dL (74-106); High Density Lipoprotein 39 mg/dL; Potassium 3.2 mmol/L (3.5-5.1); Protein, Total 7.4 g/dL (6.4-8.2); Sodium Level 141 mmol/L (136-145); T4 Free Direct 1.07 ng/dL (0.76-1.46); Thyroid Stim Hormone (TSH) 6.86 uIU/mL (0.358-3.74); Triglycerides 91 mg/dL; Very Low Density Lipoprotein 18 mg/dL (5-40)
[2024-05-28 10:35] LABS: Hemoglobin A1c 4.9 % (3.8-5.6)
[2024-05-28 10:37] LABS: Vitamin D,25 Hydroxy 71.3 ng/mL
[2024-05-29 10:42] LABS: AFP, Tumor Marker 5.6 ng/mL (0.0-8.4); PROLACTIN 31.2 ng/mL (3.6-25.2)
== END | disposition home or self-care (01) ==
LOC: LAB 09:24
PROVIDERS: Referring Provider Internal Medicine; Visit Provider Internal Medicine
DX: E55.9 Vitamin D deficiency, unspecified (principal); R53.83 Other fatigue; Z79.899 Other long term (current) drug therapy; K75.81 Nonalcoholic steatohepatitis (NASH); K22.70 Barrett's esophagus without dysplasia; E66.9 Obesity, unspecified; E83.110 Hereditary hemochromatosis
CPT/HCPCS: 36415; 80053; 80061; 82105; 82306; 83036; 84146; 84439; 84443; 85025; 85610; 86140

== ENCOUNTER → 2024-07-13 | Outpatient (CLI) | payer MEDICARE, SELFPAY ==
--- NOTE | 2024-07-13 09:06 | US_ITS ---
STUDY: ABDOMINAL ULTRASOUND - RIGHT UPPER QUADRANT; ELASTOGRAPHY REASON FOR VISIT: Male, 54 years old. Liver fibrosis. NAFLD TECHNIQUE: Ultrasound evaluation of the right upper quadrant was performed with real-time and static white-scale imaging. Point quantification shear wave elastography was performed ([employer]). TECHNICAL QUALITY: Limited. Examination limited due to obesity. COMPARISON: Comparison is made with prior study October 18, 2021. FINDINGS: Liver: The liver is enlarged and measures 22 cm. There is increased echogenicity consistent with fatty infiltration. The bile ducts are within normal limits. There is hepatic color flow. The direction of portal flow is hepatopetal. There is no demonstrated mass lesion. Median liver stiffness measured 9.2 kPa. Gallbladder: Normal distended gallbladder. The gallbladder wall measures 2.8 mm. There is a negative sonographic Young''s sign. There is no pericholecystic fluid. There are no gallstones. Sludge is seen within the gallbladder lumen. Common Bile Duct (C.B.D.): The common bile duct measures 3.7 mm. Pancreas: There is normal echogenicity of the visualized pancreas. There is no demonstrated pancreatic mass or cyst. Right Kidney: Normal size of the right kidney. The right kidney measures 10.3 cm x 4.5 cm x 6 cm. Normal renal cortex. The right cortex measures 1.5 cm. There is no demonstrated renal mass or cyst. There is no right hydronephrosis. US/ABD Limited w/ Elastography IMPRESSION: 1. Liver stiffness measures 9.2 kPa compatible with F2-F3 (Mild to moderate liver fibrosis) Metavir score. Electronically Signed: Rosalio Dowling MD at 12:42 EDT ,
== END | disposition home or self-care (01) ==
LOC: US 09:06
PROVIDERS: Referring Provider Internal Medicine; Visit Provider Internal Medicine
DX: K76.0 Fatty (change of) liver, not elsewhere classified (principal); K22.70 Barrett's esophagus without dysplasia; E83.110 Hereditary hemochromatosis; R10.9 Unspecified abdominal pain; K75.9 Inflammatory liver disease, unspecified; E66.9 Obesity, unspecified
CPT/HCPCS: 76705; 76981

== ENCOUNTER → 2024-10-25 | Outpatient (CLI) | payer MEDICARE, SELFPAY ==
[2024-10-26 09:00] LABS: T4 Free Direct 1.27 ng/dL (0.76-1.46)
[2024-10-26 09:02] LABS: T3 Total - Triiodothyronine 1.23 ng/mL (0.6-1.81)
== END | disposition home or self-care (01) ==
LOC: BIMLAB 13:43
PROVIDERS: PCP Internal Medicine; Referring Provider Internal Medicine; Visit Provider Internal Medicine
DX: F32.A Depression, unspecified (principal); F41.9 Anxiety disorder, unspecified; E55.9 Vitamin D deficiency, unspecified
CPT/HCPCS: 36415; 82306; 84439; 84443; 84480

== ENCOUNTER → 2024-11-30 | Outpatient (CLI) | payer MEDICARE, SELFPAY ==
[2024-11-30 13:42] LABS: Absolute Lymphocyte Count 1.38 X10^3/uL (0.83-4.51); Absolute Neutrophil Count 8.3 X10^3/uL (2.0-7.7); Basophil# 0.03 X10^3/uL; Basophil% 0.3 % (0-1); Eosinophil# 0.04 X10^3/uL; Eosinophils% 0.4 % (0-5); Hematocrit 41.5 % (40-54); Hemoglobin 14.5 g/dL (13.0-16.5); Lymphocyte # 1.38 X10^3/ul (0.83-4.51); Lymphocyte % 13.5 % (19-41); Mean Corp Hgb Conc 34.9 g/dL (32-36); Mean Corpuscular Hgb 31.3 pg (27.0-32.0); Mean Corpuscular Volume 89.6 fL (80-94); Mean Platelet Vol. 9.6 fl (6.2-12.0); Monocyte# 0.43 X10^3/uL; Monocyte% 4.2 % (0-10); NRBC Flagged by Analyzer 0 % (0-5); Neutrophil # 8.27 X10^3/uL (2.7-7.7); Platelet Count 298 K/mm3 (150-450); RBC Distribution Width CV 15.7 % (11.6-14.6); RBC Distribution Width SD 51.8 fl (35.1-43.9); Red Blood Count 4.63 M/mm3 (4.6-6.2); White Blood Count 10.2 K/mm3 (4.4-11.0)
[2024-11-30 14:14] LABS: Prothrombin Time (Protime)PT. 13.7 SECONDS (11.7-14.9)
[2024-11-30 15:44] LABS: ALB/GLOB Ratio 0.9 RATIO (0.9-2.4); AST(SGOT) 20 U/L (15-37); Alanine Aminotransfer ALT/SGPT 24 U/L (16-61); Albumin, Serum 3.7 g/dL (3.2-5.0); Alkaline Phosphatase 116 U/L (45-117); Anion Gap 11 (5-15); BUN 11 mg/dL (7-18); BUN/Creat Ratio 8.1 RATIO (10-20); Bilirubin, Direct 0.32 mg/dL (0.00-0.30); Calcium,Total 9.1 mg/dL (8.5-10.1); Chloride 104 mmol/L (98-107); Cholesterol 139 mg/dL (200); Creatinine, Serum 1.36 mg/dL (0.70-1.30); EST Glomerular Filtration Rate 58 mL/min (>60); Est Glom Filt Rate - Afr Amer 70 mL/min (>60); Ferritin 203 ng/mL (26-388); Globulin 4.2 g/dL (2.2-4.2); Glucose 127 mg/dL (74-106); High Density Lipoprotein 45 mg/dL; Potassium 3.3 mmol/L (3.5-5.1); Protein, Total 7.9 g/dL (6.4-8.2); Sodium Level 138 mmol/L (136-145); T4 Free Direct 1.23 ng/dL (0.76-1.46); Triglycerides 78 mg/dL; Very Low Density Lipoprotein 16 mg/dL (5-40)
[2024-12-02 04:06] LABS: GGTP 13 IU/L (0-65)
== END | disposition home or self-care (01) ==
PROVIDERS: PCP Internal Medicine; Referring Provider Internal Medicine; Visit Provider Internal Medicine
DX: R63.4 Abnormal weight loss (principal); E66.813 Obesity, class 3; E66.01 Morbid (severe) obesity due to excess calories; Z68.43 Body mass index [BMI] 50.0-59.9, adult; K22.719 Barrett's esophagus with dysplasia, unspecified; K75.81 Nonalcoholic steatohepatitis (NASH); E83.110 Hereditary hemochromatosis; K75.9 Inflammatory liver disease, unspecified; E03.9 Hypothyroidism, unspecified
CPT/HCPCS: 36415; 80053; 80061; 82248; 82728; 82977; 83036; 84439; 84443; 85025; 85610; 86140

== ENCOUNTER → 2025-08-18 | Outpatient (CLI) | payer MEDICARE, SELFPAY ==
[2025-08-18 13:06] LABS: Hematocrit 45.7 % (40-54); Hemoglobin 15.8 g/dL (13.0-16.5); Immature Granulocytes Count 0.030 X10^3/uL (0.0-0.0); Mean Corp Hgb Conc 34.6 g/dL (32-36); Mean Corpuscular Volume 90.1 fL (80-94); Mean Platelet Vol. 9.3 fl (6.2-12.0); NRBC Flagged by Analyzer 0 % (0-5); Platelet Count 286 K/mm3 (150-450); RBC Distribution Width CV 13.6 % (11.6-14.6); RBC Distribution Width SD 45.1 fl (35.1-43.9); Red Blood Count 5.07 M/mm3 (4.6-6.2); White Blood Count 8.6 K/mm3 (4.4-11.0)
[2025-08-18 13:15] LABS: Prothrombin Time (Protime)PT. 12.9 SECONDS (11.7-14.9)
[2025-08-18 14:02] LABS: AST(SGOT) 22 U/L (<=37); Alanine Aminotransfer ALT/SGPT 16 U/L (<=46); Albumin, Serum 4.1 g/dL (3.5-5.0); Alkaline Phosphatase 115 U/L (40-129); Anion Gap 11 (5-15); BUN 12 mg/dL (4-19); BUN/Creat Ratio 9.5 RATIO (10-20); Calcium,Total 9.5 mg/dL (7.6-11.0); Carbon Dioxide 25.0 mmol/L (21.0-32.0); Chloride 101 mmol/L (98-108); Cholesterol 162 mg/dL (<=200); Ferritin 222 ng/mL (37-417); Globulin 3.4 g/dL (2.2-4.2); Glucose 119 mg/dL (70-99); Low Density Lipoprotein Calc. 103 mg/dL; Potassium 4.2 mmol/L (3.3-5.1); Triglycerides 61 mg/dL; Very Low Density Lipoprotein 12 mg/dL (5-40); cholesterol:hdl ratio screen 3.49
[2025-08-18 14:15] LABS: CRP 14.70 mg/L (0.0-3.0); Iron 69 ug/dL (65-175); Iron Binding Capacity,Total 310 ug/dL (250-450); Iron Binding Capacity,Unsat 241 ug/dL (228-428)
[2025-08-20 08:08] LABS: PROLACTIN 1.9 ng/mL (3.6-25.2)
[2025-08-22 14:08] LABS: Albumin 3.9 g/dL (2.9-4.4); GGTP 15 IU/L (0-65); Gamma Globulin 1.3 g/dL (0.4-1.8); HEPATITIS B SURFACE AG Negative (Negative); Hep C Antibodies Non Reactive (Non Reactive); Immunoglobulin A 186 mg/dL (90-386); Immunoglobulin G 1492 mg/dL (603-1613); Immunoglobulin M 41 mg/dL (20-172); PROEL- TOTAL PROTEIN 7.2 g/dL (6.0-8.5); Transferrin 267 mg/dL (177-329)
== END | disposition home or self-care (01) ==
LOC: LAB 11:47
PROVIDERS: Internal Medicine; PCP Internal Medicine; Referring Provider Registered Nurse; Visit Provider Registered Nurse
DX: K75.81 Nonalcoholic steatohepatitis (NASH) (principal); E83.110 Hereditary hemochromatosis; R10.9 Unspecified abdominal pain; K22.70 Barrett's esophagus without dysplasia; E66.9 Obesity, unspecified; E03.9 Hypothyroidism, unspecified
CPT/HCPCS: 36415; 80053; 80061; 80074; 82728; 82784; 82977; 83036; 83540; 83550; 84146; 84165; 84439; 84443; 84466; 85025; 85610; 86140; 86334

== ENCOUNTER → 2025-09-16 | Outpatient (CLI) | payer MEDICARE, SELFPAY ==
--- NOTE | 2025-09-16 07:34 | US_ITS ---
PROCEDURE: ABD LIMITED W/ ELASTOGRAPHY REASON FOR EXAM: LIVER FIBROSIS. COMPARISON: Prior study dated July 13, 2024. TECHNIQUE: Procedure Code: USABDLELPARO Modality: US Procedure: ABD LIMITED W/ ELASTOGRAPHY Right upper quadrant abdominal ultrasound. Robert Elast[employer] shear wave elastography for non-invasive assessment of liver tissue stiffness. Robert EPIQ Elite. FINDINGS: LIVER: Size: Enlarged (hepatomegaly) Length: 22.3 cm Echotexture: Diffusely echogenic suggesting fatty infiltration Contour: Normal Lesions: None identified Elastography: EQI Med: 5 kPa EQI Med Joao: 1.27 m/s IQR/Med: 32 %* GALLBLADDER: No stones sludge wall thickening or tenderness. COMMON BILE DUCT: Normal measuring 3.6 mm . PANCREAS: Normal Visualized portions of the right kidney are unremarkable. No right upper quadrant ascites. The spleen is not enlarged. US/ABD Limited w/ Elastography IMPRESSION: NO TO MILD HEPATIC FIBROSIS Hepatomegaly. Diffuse fatty infiltration of the liver. Reference Values: SRU <1.37 m/s (5.7kPa): No to mild fibrosis 1.37 m/s - 2.2 m/s: Moderate to severe fibrosis >2.2 m/s (15kPa): Significant fibrosis / cirrhosis METAVIR Score F2 or higher: 1.34 m/s (5.7kPa) F3 or higher: 1.55 m/s (7.3kPa) F4: 1.80 m/s (10kPa) * If the IQR/Med is >30%, the variance in the measurements is a large and the a ccuracy of the measurement may be in question. Reading Location: [place] [id number]
--- OUTSIDE RECORDS SUMMARY | 2025-09-16 07:40 | XMS RPT_ITS | CCD ---
Author Organization [facility] Care Team Providers Care Dry Cans Back Tender Name Role Phone Holladay, Vane Primary Care Unavailable Holladay, Vane Attending Unavailable Wagner, Vane Referring Unavailable Holladay, Vane Primary Care Unavailable Brent, Patel Attending Unavailable Brent, Patel Referring Unavailable Holladay, Vane Primary Care Unavailable Chance REGIONAL EDUCATION COORDINATOR, Deana Attending Unavailable Chance REGIONAL EDUCATION COORDINATOR, Deana Referring Unavailable Brent, Patel Consulting Unavailable Brent, Patle Referring Unavailable Holladay, Vane Primary Care Unavailable Brent, Patel Attending Unavailable Care Physician, No Primary Referring Unava ilable Brent, Patel Attending Unavailable Holladay, Vane Primary Care Unavailable Brent, Patel Attending Unavailable Wagner, Vane Referring Unavailable Holladay, Vane Primary Care Unavailable Care Physician, No Primary Primary Care Unava ilable Care Physician, No Primary Referring Unava ilable Holladay, Vane Attending Unavailable Problems Active Problems Problem Classification Problem Date Documented Date Episodic/Chronic Anxiety disorders (1 source) Anxiety disorder, unspecified; Translations: [Anxiety disorder, unspecified] Onset: 10-25-2024 Chronic Esophageal disorders (1 source) Soares's esophagus with dysplasia, unspecified; Translations: [Soares's esophagus with dysplasia, unspecified] Onset: 08-25-2025 Chronic Hepatitis (2 sources) Nonalcoholic steatohepatitis (HANNA); Translations: [Nonalcoholic steatohepatitis (HANNA)] Onset: 08-24-2025 Chronic Mood disorders (1 source) Mood disorders; Translations: [Depression, unspecified] Onset: 11-15-2024 Nutritional deficiencies (1 source) Vitamin D deficiency, unspecified; Translations: [Vitamin D deficiency, unspecified] Onset: 10-25-2024 Chronic Other liver diseases (1 source) Fatty (change of) liver, not elsewhere classified; Translations: [Fatty (change of) liver, not elsewhere classified] Onset: 08-25-2025 Chronic Other nutritional; endocrine; and metabolic disorders (1 source) Hereditary hemochromatosis; Translations: [Hereditary hemochromatosis] Onset: 08-25-2025 Chronic Past or Other Problems Problem Classification Problem Date Documented Da te Episodic/Chronic Other nutritional; endocrine; and metabolic disorders (1 source) Abnormal weight loss; Translations: [Abnormal weight loss] Onset: 12-21-2024 Episodic Results Test Name Value Interpretation Reference Range Facility [id number] 08-24-2025 [facility] COM[place] Normal . [facility] Comment on above: Order Comment: [id number] 9ELF TEST Result Comment: Test Ordered: [id number] Enhanced Liver Fibrosis (ELF) ELF(TM) Score 9.62 BN Reference Range: <9.80 ELF(TM) Score Interpretation: Risk cut-offs to assess the likelihood of progression to cirrhosis and liver-related clinical events within 3.9 years following baseline ELF score (IQR: 14.0-22.4 months)*: Lower risk < 9.80 Mid risk 9.80 - 11.29 Higher risk >11.29 Note: The ELF(TM) Score is a unitless numerical value. *Jose SA, Brandon VW, Okcarina T, et al. Selonsertib for patients with bridging fibrosis or compensated cirrhosis due to HANNA: Results from randomized phase III STELLAR trials. J Hepatol. 2020 Apr;73(1):26-39. Performed at: [address] [id number] Cake Mixer: Nelson Godinez MD, Phone: [phone] Performed at: [address] [id number] Cake Mixer: Rubin Leonardo PhD, Phone: [phone] Performed By: #### L 501.9985, L503.6030, L300.3900, L3100.3425, L501.9520, L100.0100, L501.5101, L503.6550, L3000.0375, L500.4050, L500.4100, L3410.9992, L501.6710, L506.0400, L3400.3800 ####[facility] [address] [place], [place], [phone] Hepatitis Panel Acuteon 11-0 COMMENT Comment Normal . [facility] Comment on above: Result Comment: Not infected with HCV unless early or acute infection is suspected (which may be delayed in an immunocompromised individual), or other evidence exists to indicate HCV infection. Performed By: #### L 501.9985, L503.6030, L300.3900, L3100.3425, L501.9520, L100.0100, L501.5101, L503.6550, L3000.0375, L500.4050, L500.4100, L3410.9992, L501.6710, L506.0400, L3400.3800 ####[facility] [address] [place], [place], [id number] HEP B CORE,IgM Negative Normal Negative [facility] Comment on above: Performed By: #### L 501.9985, L503.6030, L300.3900, L3100.3425, L501.9520, L100.0100, L501.5101, L503.6550, L3000.0375, L500.4050, L500.4100, L3410.9992, L501.6710, L506.0400, L3400.3800 ####[facility] [address] [place], [place], [phone] HEP B SURF AG Negative Normal Negative [facility] Comment on above: Performed By: #### L 501.9985, L503.6030, L300.3900, L3100.3425, L501.9520, L100.0100, L501.5101, L503.6550, L3000.0375, L500.4050, L500.4100, L3410.9992, L501.6710, L506.0400, L3400.3800 ####[facility] [address] [place], [address] HEP C VIRUS AB Non-Reactive Normal Non Reactive [facility] Comment on above: Performed By: #### L 501.9985, L503.6030, L300.3900, L3100.3425, L501.9520, L100.0100, L501.5101, L503.6550, L3000.0375, L500.4050, L500.4100, L3410.9992, L501.6710, L506.0400, L3400.3800 ####[facility] [address] [place], [address] HEPATITIS A-IgM Negative Normal Negative [facility] Comment on above: Result Comment: A ne gative anti-HAV IgM result suggests no recent or current HAV infection. Performed By: #### L 501.9985, L503.6030, L300.3900, L3100.3425, L501.9520, L100.0100, L501.5101, L503.6550, L3000.0375, L500.4050, L500.4100, L3410.9992, L501.6710, L506.0400, L3400.3800 ####[facility] [address] [place], [address] LUIS + Protein Elect, Serumon 08-22-2025 Albumin [Mass/Vol] 3.9 g/dL Normal 2.9-4.4 [facility] Comment on above: Order Comment: Y Performed By: #### L 501.9985, L503.6030, L300.3900, L3100.3425, L501.9520, L100.0100, L501.5101, L503.6550, L3000.0375, L500.4050, L500.4100, L3410.9992, L501.6710, L506.0400, L3400.3800 ####[facility] [address] [place], [address] Albumin/Globulin [Mass ratio] 1.2 {ratio} Normal 0.7-1.7 [facility] Comment on above: Order Comment: Y Performed By: #### L 501.9985, L503.6030, L300.3900, L3100.3425, L501.9520, L100.0100, L501.5101, L503.6550, L3000.0375, L500.4050, L500.4100, L3410.9992, L501.6710, L506.0400, L3400.3800 ####[facility] [address] [place], [address] EAJDB-8-AXAL 0.3 g/dL Normal 0.0-0.4 [facility] Comment on above: Order Comment: Y Performed By: #### L 501.9985, L503.6030, L300.3900, L3100.3425, L501.9520, L100.0100, L501.5101, L503.6550, L3000.0375, L500.4050, L500.4100, L3410.9992, L501.6710, L506.0400, L3400.3800 ####[facility] [address] [facility] [place], [address] IWOJR-3-GEUZ 0.7 g/dL Normal 0.4-1.0 [facility] Comment on above: Order Comment: Y Performed By: #### L 501.9985, L503.6030, L300.3900, L3100.3425, L501.9520, L100.0100, L501.5101, L503.6550, L3000.0375, L500.4050, L500.4100, L3410.9992, L501.6710, L506.0400, L3400.3800 ####[facility] [address] [place], [address] BETA GLOBULIN 1.1 g/dL Normal 0.7-1.3 [facility] Comment on above: Order Comment: Y Performed By: #### L 501.9985, L503.6030, L300.3900, L3100.3425, L501.9520, L100.0100, L501.5101, L503.6550, L3000.0375, L500.4050, L500.4100, L3410.9992, L501.6710, L506.0400, L3400.3800 ####[facility] [address] [place], [address] GAMMA GLOBULIN 1.3 g/dL Normal 0.4-1.8 [facility] Comment on above: Order Comment: Y Performed By: #### L 501.9985, L503.6030, L300.3900, L3100.3425, L501.9520, L100.0100, L501.5101, L503.6550, L3000.0375, L500.4050, L500.4100, L3410.9992, L501.6710, L506.0400, L3400.3800 ####[facility] [address] [place], [address] Globulin (S) [Mass/Vol] 3.3 g/dL Normal 2.2-3.9 [facility] Comment on above: Order Comment: Y Performed By: #### L 501.9985, L503.6030, L300.3900, L3100.3425, L501.9520, L100.0100, L501.5101, L503.6550, L3000.0375, L500.4050, L500.4100, L3410.9992, L501.6710, L506.0400, L3400.3800 ####[facility] [address] [place], [address] LUIS RESULT,S Comment Normal . [facility] Comment on above: Order Comment: Y Result Comment: No m onoclonality detected. Performed By: #### L 501.9985, L503.6030, L300.3900, L3100.3425, L501.9520, L100.0100, L501.5101, L503.6550, L3000.0375, L500.4050, L500.4100, L3410.9992, L501.6710, L506.0400, L3400.3800 ####[facility] [address] [place], [address] IMMUNOGLOB A QN 186 mg/dL Normal 90-386 [facility] Comment on above: Order Comment: Y Performed By: #### L 501.9985, L503.6030, L300.3900, L3100.3425, L501.9520, L100.0100, L501.5101, L503.6550, L3000.0375, L500.4050, L500.4100, L3410.9992, L501.6710, L506.0400, L3400.3800 ####[facility] [address] [place], [address] IMMUNOGLOB G QN 1492 mg/dL Normal 603-1613 [facility] Comment on above: Order Comment: Y Performed By: #### L 501.9985, L503.6030, L300.3900, L3100.3425, L501.9520, L100.0100, L501.5101, L503.6550, L3000.0375, L500.4050, L500.4100, L3410.9992, L501.6710, L506.0400, L3400.3800 ####[facility] [address] [place], [address] IMMUNOGLOB M QN 41 mg/dL Normal 20-172 [facility] Comment on above: Order Comment: Y Performed By: #### L 501.9985, L503.6030, L300.3900, L3100.3425, L501.9520, L100.0100, L501.5101, L503.6550, L3000.0375, L500.4050, L500.4100, L3410.9992, L501.6710, L506.0400, L3400.3800 ####[facility] [address] [place], [address] M-Tino Not Observed Normal Not Observed [facility] Comment on above: Order Comment: Y Performed By: #### L 501.9985, L503.6030, L300.3900, L3100.3425, L501.9520, L100.0100, L501.5101, L503.6550, L3000.0375, L500.4050, L500.4100, L3410.9992, L501.6710, L506.0400, L3400.3800 ####[facility] [address] [place], [address] NOTE: Comment Normal . [facility] Comment on above: Order Comment: Y Result Comment: Prot ein electrophoresis scan will follow via computer, mail, or forms analyst delivery. Performed By: #### L 501.9985, L503.6030, L300.3900, L3100.3425, L501.9520, L100.0100, L501.5101, L503.6550, L3000.0375, L500.4050, L500.4100, L3410.9992, L501.6710, L506.0400, L3400.3800 ####[facility] [address] [place], [address] Protein [Mass/Vol] 7.2 g/dL Normal 6.0-8.5 [facility] Comment on above: Order Comment: Y Performed By: #### L 501.9985, L503.6030, L300.3900, L3100.3425, L501.9520, L100.0100, L501.5101, L503.6550, L3000.0375, L500.4050, L500.4100, L3410.9992, L501.6710, L506.0400, L3400.3800 ####[facility] [address] [place], [place], [address] L501.5101on 08-22-2025 GGTP 15 IU/L Normal 0-65 [facility] Comment on above: Performed By: #### L 501.9985, L503.6030, L300.3900, L3100.3425, L501.9520, L100.0100, L501.5101, L503.6550, L3000.0375, L500.4050, L500.4100, L3410.9992, L501.6710, L506.0400, L3400.3800 ####[facility] [address] [place], [place], [id number] Transferrinon 08-22-2025 Transferrin [Mass/Vol] 267 mg/dL Normal 177-329 [facility] Comment on above: Result Comment: Perf ormed at: CB - [facility] [place] [id number] Cake Mixer: Rubin Leonardo PhD, Phone: [phone] Performed By: #### L 501.9985, L503.6030, L300.3900, L3100.3425, L501.9520, L100.0100, L501.5101, L503.6550, L3000.0375, L500.4050, L500.4100, L3410.9992, L501.6710, L506.0400, L3400.3800 ####[facility] [address] [place], [place], [id number] L3410.9992on 08-20-2025 [facility] Misc. COMMENT Normal . [facility] Comment on above: Order Comment: SERUM OR PLASMA EXTRAS TUBES IN [id number] PANEL Result Comment: Test Ordered: [id number] Thyroid Panel With TSH TSH 8.130 [H ] uIU/mL CB Reference Range: 0.450-4.500 Thyroxine (T4) 11.8 ug/dL CB Reference Range: 4.5-12.0 T3 Uptake 21 [L ] % CB Reference Range: 24-39 Free Thyroxine Index 2.5 CB Reference Range: 1.2-4.9 Performed at: [address] [id number] Cake Mixer: Rubin Leonardo PhD, Phone: [phone] Performed By: #### L 501.9520, L300.3900, L501.5101, L500.4100, L501.9985, L3410.9998, L100.0100, L506.0400, L501.4700, L501.6710, L503.6550, L500.4050 #### [facility] Laboratory [address] [place], [address] PROLACTIN 4465on 08-20-2025 PROLACTIN 1.9 ng/mL Low 3.6-25.2 [facility] Comment on above: Result Comment: Perf ormed at: [address] [id number] Cake Mixer: Rubin Leonardo PhD, Phone: [phone] Performed By: #### L 501.9520, L300.3900, L501.5101, L500.4100, L501.9985, L3410.9998, L100.0100, L506.0400, L501.4700, L501.6710, L503.6550, L500.4050 #### [facility] Laboratory [address] [place], [address] CBC W/Diff, Automatedon 10-3 Absolute Lymph 1.29 X10 3/uL Normal 0.83-4.51 [facility] Comment on above: Performed By: #### L 501.9985, L503.6030, L300.3900, L3100.3425, L501.9520, L100.0100, L501.5101, L503.6550, L3000.0375, L500.4050, L500.4100, L3410.9992, L501.6710, L506.0400, L3400.3800 ####[facility] [address] [place], [address] Absolute Neut 6.8 X10 3/uL Normal 2.0-7.7 [facility] Comment on above: Performed By: #### L 501.9985, L503.6030, L300.3900, L3100.3425, L501.9520, L100.0100, L501.5101, L503.6550, L3000.0375, L500.4050, L500.4100, L3410.9992, L501.6710, L506.0400, L3400.3800 ####[facility] [address] [place], [address] Basophils/100 WBC (Bld) 0.3 % Normal 0-1 [facility] Comment on above: Performed By: #### L 501.9985, L503.6030, L300.3900, L3100.3425, L501.9520, L100.0100, L501.5101, L503.6550, L3000.0375, L500.4050, L500.4100, L3410.9992, L501.6710, L506.0400, L3400.3800 ####[facility] [address] [place], [address] Eosinophils/100 WBC (Bld) 1.5 % Normal 0-5 [facility] Comment on above: Performed By: #### L 501.9985, L503.6030, L300.3900, L3100.3425, L501.9520, L100.0100, L501.5101, L503.6550, L3000.0375, L500.4050, L500.4100, L3410.9992, L501.6710, L506.0400, L3400.3800 ####[facility] [address] [place], [address] Erythrocyte distribution width (RBC) [Ratio] 13.6 % Normal 11.6-14.6 [facility] Comment on above: Performed By: #### L 501.9985, L503.6030, L300.3900, L3100.3425, L501.9520, L100.0100, L501.5101, L503.6550, L3000.0375, L500.4050, L500.4100, L3410.9992, L501.6710, L506.0400, L3400.3800 ####[facility] [address] [facility] [place], [place], [phone]) Hematocrit (Bld) [Volume fraction] 45.7 % Normal 40-54 [facility] Comment on above: Performed By: #### L 501.9985, L503.6030, L300.3900, L3100.3425, L501.9520, L100.0100, L501.5101, L503.6550, L3000.0375, L500.4050, L500.4100, L3410.9992, L501.6710, L506.0400, L3400.3800 ####[facility] [address] [facility] [place], [address](132) Hemoglobin (Bld) [Mass/Vol] 15.8 g/dL Normal 13.0-16.5 [facility] Comment on above: Performed By: #### L 501.9985, L503.6030, L300.3900, L3100.3425, L501.9520, L100.0100, L501.5101, L503.6550, L3000.0375, L500.4050, L500.4100, L3410.9992, L501.6710, L506.0400, L3400.3800 ####[facility] [address] [facility] [place], [place], [phone](546) IG% 0.300 Normal 0.0-0.9 [facility] Comment on above: Result Comment: IG% - Immature Granulocytes (promyelocytes, myelocytes and metamyelocytes) > 1% indicates that a LEFT SHIFT is Present. Performed By: #### L 501.9985, L503.6030, L300.3900, L3100.3425, L501.9520, L100.0100, L501.5101, L503.6550, L3000.0375, L500.4050, L500.4100, L3410.9992, L501.6710, L506.0400, L3400.3800 ####[facility] [address] [facility] [place], [address] Lymphocytes/100 WBC (Bld) 15.0 % Low 19-41 [facility] Comment on above: Performed By: #### L 501.9985, L503.6030, L300.3900, L3100.3425, L501.9520, L100.0100, L501.5101, L503.6550, L3000.0375, L500.4050, L500.4100, L3410.9992, L501.6710, L506.0400, L3400.3800 ####[facility] [address] [facility] [place], [place], [phone](854) MCH (RBC) [Entitic mass] 31.2 pg Normal 27.0-32.0 [facility] Comment on above: Performed By: #### L 501.9985, L503.6030, L300.3900, L3100.3425, L501.9520, L100.0100, L501.5101, L503.6550, L3000.0375, L500.4050, L500.4100, L3410.9992, L501.6710, L506.0400, L3400.3800 ####[facility] [address] [facility] [place], [address] MCHC (RBC) [Mass/Vol] 34.6 g/dL Normal 32-36 [facility] Comment on above: Performed By: #### L 501.9985, L503.6030, L300.3900, L3100.3425, L501.9520, L100.0100, L501.5101, L503.6550, L3000.0375, L500.4050, L500.4100, L3410.9992, L501.6710, L506.0400, L3400.3800 ####[facility] [address] [place], [address] MCV (RBC) [Entitic vol] 90.1 fL Normal 80-94 [facility] Comment on above: Performed By: #### L 501.9985, L503.6030, L300.3900, L3100.3425, L501.9520, L100.0100, L501.5101, L503.6550, L3000.0375, L500.4050, L500.4100, L3410.9992, L501.6710, L506.0400, L3400.3800 ####[facility] [address] [place], [address] Monocytes/100 WBC (Bld) 3.5 % Normal 0-10 [facility] Comment on above: Performed By: #### L 501.9985, L503.6030, L300.3900, L3100.3425, L501.9520, L100.0100, L501.5101, L503.6550, L3000.0375, L500.4050, L500.4100, L3410.9992, L501.6710, L506.0400, L3400.3800 ####[facility] [address] [place], [address] Neutrophils/100 WBC (Bld) 79.4 % High 47-70 [facility] Comment on above: Performed By: #### L 501.9985, L503.6030, L300.3900, L3100.3425, L501.9520, L100.0100, L501.5101, L503.6550, L3000.0375, L500.4050, L500.4100, L3410.9992, L501.6710, L506.0400, L3400.3800 ####[facility] [address] [place], [place], [phone](845) Nucleated RBC (Bld) [#/Vol] 0 10*3/uL Normal 0-5 [facility] Comment on above: Performed By: #### L 501.9985, L503.6030, L300.3900, L3100.3425, L501.9520, L100.0100, L501.5101, L503.6550, L3000.0375, L500.4050, L500.4100, L3410.9992, L501.6710, L506.0400, L3400.3800 ####[facility] [address] [place], [place], [phone](188) Platelet mean volume (Bld) [Entitic vol] 9.3 fL Normal 6.2-12.0 [facility] Comment on above: Performed By: #### L 501.9985, L503.6030, L300.3900, L3100.3425, L501.9520, L100.0100, L501.5101, L503.6550, L3000.0375, L500.4050, L500.4100, L3410.9992, L501.6710, L506.0400, L3400.3800 ####[facility] [address] [facility]. [place], [place], [phone](824) Platelets (Bld) [#/Vol] 286 10*3/uL Normal 150-450 [facility] Comment on above: Performed By: #### L 501.9985, L503.6030, L300.3900, L3100.3425, L501.9520, L100.0100, L501.5101, L503.6550, L3000.0375, L500.4050, L500.4100, L3410.9992, L501.6710, L506.0400, L3400.3800 ####[facility] [address] [place], [place], [phone](099) RBC (Bld) [#/Vol] 5.07 10*6/uL Normal 4.6-6.2 [facility] Comment on above: Performed By: #### L 501.9985, L503.6030, L300.3900, L3100.3425, L501.9520, L100.0100, L501.5101, L503.6550, L3000.0375, L500.4050, L500.4100, L3410.9992, L501.6710, L506.0400, L3400.3800 ####[facility] [address] [place], [place], [phone] RDW SD 45.1 fl High 35.1-43.9 [facility] Comment on above: Performed By: #### L 501.9985, L503.6030, L300.3900, L3100.3425, L501.9520, L100.0100, L501.5101, L503.6550, L3000.0375, L500.4050, L500.4100, L3410.9992, L501.6710, L506.0400, L3400.3800 ####[facility] [address] [place], [place], [phone] WBC (Bld) [#/Vol] 8.6 10*3/uL Normal 4.4-11.0 [facility] Comment on above: Performed By: #### L 501.9985, L503.6030, L300.3900, L3100.3425, L501.9520, L100.0100, L501.5101, L503.6550, L3000.0375, L500.4050, L500.4100, L3410.9992, L501.6710, L506.0400, L3400.3800 ####[facility] [id number] [place], [address] CRPon 08-18-2025 C-REACTIVE PROT 14.70 mg/L High 0.0-3.0 [facility] Comment on above: Performed By: #### L 501.9985, L503.6030, L300.3900, L3100.3425, L501.9520, L100.0100, L501.5101, L503.6550, L3000.0375, L500.4050, L500.4100, L3410.9992, L501.6710, L506.0400, L3400.3800 ####[facility] [id number] [place], [address] Comprehensive Metabolic Prof ilon 08-18-2025 Albumin [Mass/Vol] 4.1 g/dL Normal 3.5-5.0 [facility] Comment on above: Performed By: #### L 501.9985, L503.6030, L300.3900, L3100.3425, L501.9520, L100.0100, L501.5101, L503.6550, L3000.0375, L500.4050, L500.4100, L3410.9992, L501.6710, L506.0400, L3400.3800 ####[facility] [address] [place], [address] Albumin/Globulin [Mass ratio] 1.2 {ratio} Normal 0.9-2.4 [facility] Comment on above: Performed By: #### L 501.9985, L503.6030, L300.3900, L3100.3425, L501.9520, L100.0100, L501.5101, L503.6550, L3000.0375, L500.4050, L500.4100, L3410.9992, L501.6710, L506.0400, L3400.3800 ####[facility] [address] [place], [address] ALK PHOS 115 U/L Normal 40-129 [facility] Comment on above: Performed By: #### L 501.9985, L503.6030, L300.3900, L3100.3425, L501.9520, L100.0100, L501.5101, L503.6550, L3000.0375, L500.4050, L500.4100, L3410.9992, L501.6710, L506.0400, L3400.3800 ####[facility] [address] [place], [address] ALT [Catalytic activity/Vol] 16 U/L Normal <=46 [facility] Comment on above: Performed By: #### L 501.9985, L503.6030, L300.3900, L3100.3425, L501.9520, L100.0100, L501.5101, L503.6550, L3000.0375, L500.4050, L500.4100, L3410.9992, L501.6710, L506.0400, L3400.3800 ####[facility] [address] [place], [address] AST [Catalytic activity/Vol] 22 U/L Normal <=37 [facility] Comment on above: Performed By: #### L 501.9985, L503.6030, L300.3900, L3100.3425, L501.9520, L100.0100, L501.5101, L503.6550, L3000.0375, L500.4050, L500.4100, L3410.9992, L501.6710, L506.0400, L3400.3800 ####[facility] [address] [place], [address] Bilirubin [Mass/Vol] 1.05 mg/dL Normal 0.00-1.30 [facility] Comment on above: Performed By: #### L 501.9985, L503.6030, L300.3900, L3100.3425, L501.9520, L100.0100, L501.5101, L503.6550, L3000.0375, L500.4050, L500.4100, L3410.9992, L501.6710, L506.0400, L3400.3800 ####[facility] [address] [place], [place], [phone] BUN/CRE 9.5 RATIO Low 10-20 [facility] Comment on above: Performed By: #### L 501.9985, L503.6030, L300.3900, L3100.3425, L501.9520, L100.0100, L501.5101, L503.6550, L3000.0375, L500.4050, L500.4100, L3410.9992, L501.6710, L506.0400, L3400.3800 ####[facility] [address] [place], [place], [phone] Calcium [Mass/Vol] 9.5 mg/dL Normal 7.6-11.0 [facility] Comment on above: Performed By: #### L 501.9985, L503.6030, L300.3900, L3100.3425, L501.9520, L100.0100, L501.5101, L503.6550, L3000.0375, L500.4050, L500.4100, L3410.9992, L501.6710, L506.0400, L3400.3800 ####[facility] [address] [place], [place], [phone] Chloride [Moles/Vol] 101 mmol/L Normal 98-108 [facility] Comment on above: Performed By: #### L 501.9985, L503.6030, L300.3900, L3100.3425, L501.9520, L100.0100, L501.5101, L503.6550, L3000.0375, L500.4050, L500.4100, L3410.9992, L501.6710, L506.0400, L3400.3800 ####[facility] [address] [place], [place], [phone] CO2 [Moles/Vol] 25.0 mmol/L Normal 21.0-32.0 [facility] Comment on above: Performed By: #### L 501.9985, L503.6030, L300.3900, L3100.3425, L501.9520, L100.0100, L501.5101, L503.6550, L3000.0375, L500.4050, L500.4100, L3410.9992, L501.6710, L506.0400, L3400.3800 ####[facility] [address] [place], [address] Creatinine [Mass/Vol] 1.31 mg/dL High 0.70-1.20 [facility] Comment on above: Performed By: #### L 501.9985, L503.6030, L300.3900, L3100.3425, L501.9520, L100.0100, L501.5101, L503.6550, L3000.0375, L500.4050, L500.4100, L3410.9992, L501.6710, L506.0400, L3400.3800 ####[facility] [address] [place], [place], [phone] GAP 11 Normal 5-15 [facility] Comment on above: Performed By: #### L 501.9985, L503.6030, L300.3900, L3100.3425, L501.9520, L100.0100, L501.5101, L503.6550, L3000.0375, L500.4050, L500.4100, L3410.9992, L501.6710, L506.0400, L3400.3800 ####[facility] [address] [place], [place], [phone] GFR/1.73 sq M.predicted among non-blacks MDRD (S/P/Bld) [Vol rate/Area] 64 mL/min/{1.73_m2} Normal >60 [facility] Comment on above: Result Comment: mL/m in/1.73m2 CKD-EPI Creatinine Equation (2020) Performed By: #### L 501.9985, L503.6030, L300.3900, L3100.3425, L501.9520, L100.0100, L501.5101, L503.6550, L3000.0375, L500.4050, L500.4100, L3410.9992, L501.6710, L506.0400, L3400.3800 ####[facility] [address] [place], [place], [phone] Globulin (S) [Mass/Vol] 3.4 g/dL Normal 2.2-4.2 [facility] Comment on above: Performed By: #### L 501.9985, L503.6030, L300.3900, L3100.3425, L501.9520, L100.0100, L501.5101, L503.6550, L3000.0375, L500.4050, L500.4100, L3410.9992, L501.6710, L506.0400, L3400.3800 ####[facility] [address] [place], [place], [phone] Glucose [Mass/Vol] 119 mg/dL High 70-99 [facility] Comment on above: Performed By: #### L 501.9985, L503.6030, L300.3900, L3100.3425, L501.9520, L100.0100, L501.5101, L503.6550, L3000.0375, L500.4050, L500.4100, L3410.9992, L501.6710, L506.0400, L3400.3800 ####[facility] [address] [place], [place], [phone] Potassium [Moles/Vol] 4.2 mmol/L Normal 3.3-5.1 [facility] Comment on above: Performed By: #### L 501.9985, L503.6030, L300.3900, L3100.3425, L501.9520, L100.0100, L501.5101, L503.6550, L3000.0375, L500.4050, L500.4100, L3410.9992, L501.6710, L506.0400, L3400.3800 ####[facility] [address] [place], [place], [phone] Sodium [Moles/Vol] 138 mmol/L Normal 133-145 [facility] Comment on above: Performed By: #### L 501.9985, L503.6030, L300.3900, L3100.3425, L501.9520, L100.0100, L501.5101, L503.6550, L3000.0375, L500.4050, L500.4100, L3410.9992, L501.6710, L506.0400, L3400.3800 ####[facility] [address] [place], [place], [phone] T PROT 7.5 g/dL Normal 5.9-8.4 [facility] Comment on above: Performed By: #### L 501.9985, L503.6030, L300.3900, L3100.3425, L501.9520, L100.0100, L501.5101, L503.6550, L3000.0375, L500.4050, L500.4100, L3410.9992, L501.6710, L506.0400, L3400.3800 ####[facility] [address] [place], [place], [phone] Urea nitrogen [Mass/Vol] 12 mg/dL Normal 4-19 [facility] Comment on above: Performed By: #### L 501.9985, L503.6030, L300.3900, L3100.3425, L501.9520, L100.0100, L501.5101, L503.6550, L3000.0375, L500.4050, L500.4100, L3410.9992, L501.6710, L506.0400, L3400.3800 ####[facility] [address] [place], [address] Ferritinon 08-18-2025 Ferritin [Mass/Vol] 222 ng/mL Normal 37-417 [facility] Comment on above: Performed By: #### L 501.9985, L503.6030, L300.3900, L3100.3425, L501.9520, L100.0100, L501.5101, L503.6550, L3000.0375, L500.4050, L500.4100, L3410.9992, L501.6710, L506.0400, L3400.3800 ####[facility] [address] [place], [place], [address] Gastroenterology Visit Repor ton 08-18-2025 Gastroenterology Visit Report [facility] [address] [place] [address] OFFICE VISIT Date of Service: 08/18/25 MR#: [id number] Acct: [id number] Name: ANGELITA KRUSE Rep #: [id number] : 1970 Provider: Dr. Patel lizarraga MD Age/Sex: 55/M Location: [facility] Status: Signed Intake Vital Signs 11/30/24 12:19 08/18/25 11:25 Height 5 ft 8 in 5 ft 8 in Weight: 326 lb 329 lb BMI 49.6 50.0 BP 144/84 H 149/84 H Blood Pressure Location Rt brachial Position Sitting Sitting Pulse 100 70 Pulse Oximetry (%) 95 97 Oxygen Delivery Method room air Intake Visit Reasons: 8 M FU Allergies No Known Allergies Allergy (Verified 08/18/25 11:20) Medications ???Medication ???Instructions ???Recorded ???Confirmed ???Type sertraline 25 mg tablet (Zoloft) 100 mg PO QHS 10/25/24 08/18/25 Hi story pantoprazole 40 mg tablet,delayed 40 mg PO DAILY #30 tabs 06/14/25 08/18/25 Rx release cholecalciferol (vitamin D3) 125 125 mcg PO DAILY #30 tabs 07/15/25 08/18/25 Rx mcg (5,000 unit) tablet metformin 500 mg tablet 500 mg PO BID 90 days #180 tabs 08/18/25 Rx pioglitazone 15 mg tablet (Actos) 15 mg PO DAILY #30 tabs 07/15/25 08/18/25 Rx spironolactone 25 mg tablet 25 mg PO DAILY #30 tabs 07/15/25 1 Rx ursodiol 500 mg tablet 500 mg PO BID 1 month #60 tabs 08/18/25 Rx PFSH Medical History Loss of consciousness Gastric reflux Obesity HANNA (nonalcoholic steatohepatitis) Hereditary hemochromatosis Anemia Wears partial dentures Anxiety Smoker Hepatitis Depression Schizophrenia Surgical History History of esophagogastroduodenoscopy (EGD) History of liver biopsy Hx of tooth extraction Family History Mother Ovarian cancer Uncle Cancer unknown Uncle Cancer lung Social History household members: family housing: house current occupational status: unemployed Smoking Status: Current every day smoker tobacco type: smokeless tobacco Tobacco: How many years used: 14 Smokeless tobacco user: chewing tobacco and snuff second hand exposure: No alcohol intake: never substance use type: does not use what type of physical activity do you participate in: none domenico/hindu: None seatbelt use: always do you feel safe at home: Yes HPI HPI Details: ANGELITA KRUSE, is a 55 M who presents to the office today for follow up. Evaluation of HANNA, hereditary hemochromatosis and obesity. Psychiatric history includes schizophrenia (diagnosed at age 35) and depression. Follows with Dr. Barrera, hematology for chronic macrocytic anemia and hereditary hemochromatosis double heterozygous C282Y/H63D; there is no active treatment at this time, just monitoring. *BGI established 08.02.21 for abdominal pain and jaundice appearance for which he was hospitalized 07.23.21. Biochemical hereditary hemochromatosis ??? two mutations identified C282Y and H63D EGD 08.14.21 LA Grade C reflux esophagitis and positive for Soares???s esophagus. MRCP performed 08.22.21 with findings of diffuse hepatic steatosis. Liver Bx 08.23.21. Macrovesicular steatosis. No evidence of cirrhosis. Hematology consult 08.22.21 for anemia and hereditary hemochromatosis with biochemical workup. OV 08.29.21 Start actos and ursodiol. OV 10.08.21 US and elastography abd 10.18.21 liver measures 21cm with increased echogenicity. Sludge seen within gallbladder lumen. Liver stiffness measures 7.2 kPa correlating with F2. Hematology OV 11.28.22 for anemia and hereditary hemochromatosis with recommendation to monitor. OV 12.09.22 Angelita feels he is doing well at the moment. No active symptoms requiring improvement. OV 06.09.23 Pt reports no changes since last visit. Continues to take medication as prescribed. Has not made any lifestyle changes in regards to his obesity. Does not have any other complaints. OV 09.16.23- Pt reports no change since last visit. Denies any abdominal pain, changes to bowels, swelling, dizziness. Patient again weight about 8 pounds since last visit in May 2023. Denies heartburn, acid reflux, burping or other dyspeptic symptoms. EGD 12.01.23- Suggestive of Soares's Esophagus, Non-bleeding ulcer Pathology- Moderate gastritis, congestion and reactive changes, Distal esophagus with mild chronic inflammation, neg. metaplasia OV 3.11.12 No changes since last visit. Is not having any abdominal pain, heartburn, swelling or bowel issues. 05.28.24- Fib-4 0.96 US abd/ elastography 07.13.24- Liver measures 22cm. Stiffness 9.2 kPa OV 24 Pt is here today to go over results (more content not included)... Normal [facility] Hemoglobin A1con 08-18-2025 HbA1c (Bld) [Mass fraction] 5.1 % Normal <=5.6 [facility] Comment on above: Result Comment: Norm al < 5.7 % Prediabetic 5.7 - 6.4 % Diabetic >or= 6.5 % Please note range changes. Performed By: #### L 501.9985, L503.6030, L300.3900, L3100.3425, L501.9520, L100.0100, L501.5101, L503.6550, L3000.0375, L500.4050, L500.4100, L3410.9992, L501.6710, L506.0400, L3400.3800 ####[facility] [address] [place], [place], [phone] Iron+Iron Binding Capacityon 08-18-2025 Iron [Mass/Vol] 69 ug/dL Normal 65-175 [facility] Comment on above: Performed By: #### L 501.9985, L503.6030, L300.3900, L3100.3425, L501.9520, L100.0100, L501.5101, L503.6550, L3000.0375, L500.4050, L500.4100, L3410.9992, L501.6710, L506.0400, L3400.3800 ####[facility] [address] [place], [place], [phone] IRON SATURATION 22.3 Normal 9-55 [facility] Comment on above: Performed By: #### L 501.9985, L503.6030, L300.3900, L3100.3425, L501.9520, L100.0100, L501.5101, L503.6550, L3000.0375, L500.4050, L500.4100, L3410.9992, L501.6710, L506.0400, L3400.3800 ####[facility] [address] [place], [place], [phone] TIBC 310 ug/dL Normal 250-450 [facility] Comment on above: Performed By: #### L 501.9985, L503.6030, L300.3900, L3100.3425, L501.9520, L100.0100, L501.5101, L503.6550, L3000.0375, L500.4050, L500.4100, L3410.9992, L501.6710, L506.0400, L3400.3800 ####[facility] [address] [place], [place], [phone] UIBC 241 ug/dL Normal 228-428 [facility] Comment on above: Performed By: #### L 501.9985, L503.6030, L300.3900, L3100.3425, L501.9520, L100.0100, L501.5101, L503.6550, L3000.0375, L500.4050, L500.4100, L3410.9992, L501.6710, L506.0400, L3400.3800 ####[facility] [address] [facility] [address] [place], [place], [phone] Lipid Profileon 08-18-2025 CHOL:HDL 3.49 Normal [facility] Comment on above: Performed By: #### L 501.9985, L503.6030, L300.3900, L3100.3425, L501.9520, L100.0100, L501.5101, L503.6550, L3000.0375, L500.4050, L500.4100, L3410.9992, L501.6710, L506.0400, L3400.3800 ####[facility] [address] [place], [place], [phone] Cholesterol [Mass/Vol] 162 mg/dL Normal <=200 [facility] Comment on above: Result Comment: Chol esterol level, Desirable <200 mg/dL Borderline high cholesterol 200-239 mg/dL High cholesterol >=240 mg/dL Recommendations of the NCEP Adult Treatment Panel for the following risk-cutoff thresholds for the [place] population. Performed By: #### L 501.9985, L503.6030, L300.3900, L3100.3425, L501.9520, L100.0100, L501.5101, L503.6550, L3000.0375, L500.4050, L500.4100, L3410.9992, L501.6710, L506.0400, L3400.3800 ####[facility] [address] [facility] [place], [place], [phone] Cholesterol in HDL [Mass/Vol] 46 mg/dL Normal [facility] Comment on above: Result Comment: Thao onal Cholesterol Education Program (NCEP) guidelines: <40 mg/dL: Low HDL-cholesterol (major risk factor for CHD) >= 60 mg/dL: High HDL-cholesterol (negative risk factor for CHD) HDL-cholesterol is affected by a number of factors, e.g. smoking, exercise, hormones, sex and age. Performed By: #### L 501.9985, L503.6030, L300.3900, L3100.3425, L501.9520, L100.0100, L501.5101, L503.6550, L3000.0375, L500.4050, L500.4100, L3410.9992, L501.6710, L506.0400, L3400.3800 ####[facility] [address] [place], [place], [phone] Cholesterol in LDL [Mass/Vol] 103 mg/dL Normal [facility] Comment on above: Result Comment: Bord pcnzfj=327-851 mg/dL Higher Rupb=523 mg/dL or greater Pierce Equation 2020 for LDL-C Performed By: #### L 501.9985, L503.6030, L300.3900, L3100.3425, L501.9520, L100.0100, L501.5101, L503.6550, L3000.0375, L500.4050, L500.4100, L3410.9992, L501.6710, L506.0400, L3400.3800 ####[facility] [address] [place], [address] Cholesterol in VLDL [Mass/Vol] 12 mg/dL Normal 5-40 [facility] Comment on above: Performed By: #### L 501.9985, L503.6030, L300.3900, L3100.3425, L501.9520, L100.0100, L501.5101, L503.6550, L3000.0375, L500.4050, L500.4100, L3410.9992, L501.6710, L506.0400, L3400.3800 ####[facility] [address] [place], [address] Triglyceride [Mass/Vol] 61 mg/dL Normal [facility] Comment on above: Result Comment: The drugs N-Acetylcysteine and Metamizole may falsely depress this assay. Normal range: <150 mg/dL Borderline High: 150-199 mg/dL High: 200-499 mg/dL Very High: >500 mg/dL Performed By: #### L 501.9985, L503.6030, L300.3900, L3100.3425, L501.9520, L100.0100, L501.5101, L503.6550, L3000.0375, L500.4050, L500.4100, L3410.9992, L501.6710, L506.0400, L3400.3800 ####[facility] [address] [place], [address] Prothrombin Time w/INRon INR Coag (PPP) [Relative time] 1.0 {INR} Normal [facility] Comment on above: Performed By: #### L 501.9985, L503.6030, L300.3900, L3100.3425, L501.9520, L100.0100, L501.5101, L503.6550, L3000.0375, L500.4050, L500.4100, L3410.9992, L501.6710, L506.0400, L3400.3800 ####[facility] [address] [place], [place], [phone] PT Coag (PPP) [Time] 12.9 s Normal 11.7-14.9 [facility] Comment on above: Performed By: #### L 501.9985, L503.6030, L300.3900, L3100.3425, L501.9520, L100.0100, L501.5101, L503.6550, L3000.0375, L500.4050, L500.4100, L3410.9992, L501.6710, L506.0400, L3400.3800 ####[facility] [address] [place], [place], [phone] T4 Free Directon 08-18-2025 T4 FREE DIRECT 1.10 ng/dL Normal 0.76-1.46 [facility] Comment on above: Performed By: #### L 501.9985, L503.6030, L300.3900, L3100.3425, L501.9520, L100.0100, L501.5101, L503.6550, L3000.0375, L500.4050, L500.4100, L3410.9992, L501.6710, L506.0400, L3400.3800 ####[facility] [address] [place], [place], [phone] Thyroid Stim Hormone (TSH)on 08-18-2025 TSH 6.820 uIU/mL High 0.300-4.200 [facility] Comment on above: Performed By: #### L 501.9985, L503.6030, L300.3900, L3100.3425, L501.9520, L100.0100, L501.5101, L503.6550, L3000.0375, L500.4050, L500.4100, L3410.9992, L501.6710, L506.0400, L3400.3800 ####[facility] [address] [place], [place], [phone] L3410.9998on 12-03-2024 [facility] COMMENT Normal . [facility] Comment on above: Order Comment: [id number] 9Enhanced Liver Fibrosis Result Comment: Test Ordered: [id number] Enhanced Liver Fibrosis (ELF) ELF(TM) Score 9.67 Reference Range: <9.80 ELF(TM) Score Interpretation: Risk cut-offs to assess the likelihood of progression to cirrhosis and liver-related clinical events within 3.9 years following baseline ELF score (IQR: 14.0-22.4 months)*: Lower risk < 9.80 Mid risk 9.80 - 11.29 Higher risk >11.29 Note: The ELF(TM) Score is a unitless numerical value. *Jose SA, Brandon RUIZ, Ervin T, et al. Selonsertib for patients with bridging fibrosis or compensated cirrhosis due to HANNA: Results from randomized phase III STELLAR trials. J Hepatol. 2020 Apr;73(1):26-39. Performed at: [facility] [address] [id number] Cake Mixer: Nelson Godinez MD, Phone: [phone] Performed at: [place] [address] [id number] Cake Mixer: Rubin Leonardo PhD, Phone: [phone] Performed By: #### L 501.9520, L300.3900, L501.5101, L500.4100, L501.9985, L3410.9998, L100.0100, L506.0400, L501.4700, L501.6710, L503.6550, L500.4050 ####[facility] [address] [place], [place], [address] L501.5101on 12-02-2024 GGTP 13 IU/L Normal 0-65 [facility] Comment on above: Result Comment: Perf ormed at: - [facility] [id number] Cake Mixer: Rubin Leonardo PhD, Phone: [phone] Performed By: #### L 501.9520, L300.3900, L501.5101, L500.4100, L501.9985, L3410.9998, L100.0100, L506.0400, L501.4700, L501.6710, L503.6550, L500.4050 ####[facility] [address] [place], [place], [phone] Bilirubin, Directon 11-30-19 Bilirubin.direct [Mass/Vol] 0.32 mg/dL High 0.00-0.30 [facility] Comment on above: Performed By: #### L 501.9520, L300.3900, L501.5101, L500.4100, L501.9985, L3410.9998, L100.0100, L506.0400, L501.4700, L501.6710, L503.6550, L500.4050 #### [facility] Laboratory [address] [place], [place], [phone] CBC W/Diff, Automatedon 11-20 Absolute Lymph 1.38 X10 3/uL Normal 0.83-4.51 [facility] Comment on above: Performed By: #### L 501.9520, L300.3900, L501.5101, L500.4100, L501.9985, L3410.9998, L100.0100, L506.0400, L501.4700, L501.6710, L503.6550, L500.4050 #### [facility] Laboratory [address] [place], [place], [phone] ([phone]) Absolute Neut 8.3 X10 3/uL High 2.0-7.7 [facility] Comment on above: Performed By: #### L 501.9520, L300.3900, L501.5101, L500.4100, L501.9985, L3410.9998, L100.0100, L506.0400, L501.4700, L501.6710, L503.6550, L500.4050 #### [facility] Laboratory [address] [place], [place], [phone] ([phone]) Basophils/100 WBC (Bld) 0.3 % Normal 0-1 [facility] Comment on above: Performed By: #### L 501.9520, L300.3900, L501.5101, L500.4100, L501.9985, L3410.9998, L100.0100, L506.0400, L501.4700, L501.6710, L503.6550, L500.4050 #### [facility] [address] [place], [place], [phone] (635) Eosinophils/100 WBC (Bld) 0.4 % Normal 0-5 [facility] Comment on above: Performed By: #### L 501.9520, L300.3900, L501.5101, L500.4100, L501.9985, L3410.9998, L100.0100, L506.0400, L501.4700, L501.6710, L503.6550, L500.4050 #### [facility] [address] [place], [place], [phone] (731) Erythrocyte distribution width (RBC) [Ratio] 15.7 % High 11.6-14.6 [facility] Comment on above: Performed By: #### L 501.9520, L300.3900, L501.5101, L500.4100, L501.9985, L3410.9998, L100.0100, L506.0400, L501.4700, L501.6710, L503.6550, L500.4050 #### [facility] [address] [place], [address] Hematocrit (Bld) [Volume fraction] 41.5 % Normal 40-54 [facility] Comment on above: Performed By: #### L 501.9520, L300.3900, L501.5101, L500.4100, L501.9985, L3410.9998, L100.0100, L506.0400, L501.4700, L501.6710, L503.6550, L500.4050 #### [facility] [address] [place], [address] Hemoglobin (Bld) [Mass/Vol] 14.5 g/dL Normal 13.0-16.5 [facility] Comment on above: Performed By: #### L 501.9520, L300.3900, L501.5101, L500.4100, L501.9985, L3410.9998, L100.0100, L506.0400, L501.4700, L501.6710, L503.6550, L500.4050 #### [facility] Laboratory [address] [place], [address] IG% 0.600 Normal 0.0-0.9 [facility] Comment on above: Result Comment: IG% - Immature Granulocytes (promyelocytes, myelocytes and metamyelocytes) > 1% indicates that a LEFT SHIFT is Present. Performed By: #### L 501.9520, L300.3900, L501.5101, L500.4100, L501.9985, L3410.9998, L100.0100, L506.0400, L501.4700, L501.6710, L503.6550, L500.4050 #### [facility] Laboratory [address] [facility] [place], [address] Lymphocytes/100 WBC (Bld) 13.5 % Low 19-41 [facility] Comment on above: Performed By: #### L 501.9520, L300.3900, L501.5101, L500.4100, L501.9985, L3410.9998, L100.0100, L506.0400, L501.4700, L501.6710, L503.6550, L500.4050 #### [facility] Laboratory [address] [place], [address] MCH (RBC) [Entitic mass] 31.3 pg Normal 27.0-32.0 [facility] Comment on above: Performed By: #### L 501.9520, L300.3900, L501.5101, L500.4100, L501.9985, L3410.9998, L100.0100, L506.0400, L501.4700, L501.6710, L503.6550, L500.4050 #### [facility] Laboratory [address] [place], [address] MCHC (RBC) [Mass/Vol] 34.9 g/dL Normal 32-36 [facility] Comment on above: Performed By: #### L 501.9520, L300.3900, L501.5101, L500.4100, L501.9985, L3410.9998, L100.0100, L506.0400, L501.4700, L501.6710, L503.6550, L500.4050 #### [facility] Laboratory [address] [place], [address] MCV (RBC) [Entitic vol] 89.6 fL Normal 80-94 [facility] Comment on above: Performed By: #### L 501.9520, L300.3900, L501.5101, L500.4100, L501.9985, L3410.9998, L100.0100, L506.0400, L501.4700, L501.6710, L503.6550, L500.4050 #### [facility] Laboratory [address] [place], [address] Monocytes/100 WBC (Bld) 4.2 % Normal 0-10 [facility] Comment on above: Performed By: #### L 501.9520, L300.3900, L501.5101, L500.4100, L501.9985, L3410.9998, L100.0100, L506.0400, L501.4700, L501.6710, L503.6550, L500.4050 #### [facility] Laboratory [address] [place], [address] Neutrophils/100 WBC (Bld) 81.0 % High 47-70 [facility] Comment on above: Performed By: #### L 501.9520, L300.3900, L501.5101, L500.4100, L501.9985, L3410.9998, L100.0100, L506.0400, L501.4700, L501.6710, L503.6550, L500.4050 #### [facility] Laboratory [address] [place], [address] Nucleated RBC (Bld) [#/Vol] 0 10*3/uL Normal 0-5 [facility] Comment on above: Performed By: #### L 501.9520, L300.3900, L501.5101, L500.4100, L501.9985, L3410.9998, L100.0100, L506.0400, L501.4700, L501.6710, L503.6550, L500.4050 #### [facility] Laboratory [address] [place], [address] Platelet mean volume (Bld) [Entitic vol] 9.6 fL Normal 6.2-12.0 [facility] Comment on above: Performed By: #### L 501.9520, L300.3900, L501.5101, L500.4100, L501.9985, L3410.9998, L100.0100, L506.0400, L501.4700, L501.6710, L503.6550, L500.4050 #### [facility] Laboratory [address] [place], [address] Platelets (Bld) [#/Vol] 298 10*3/uL Normal 150-450 [facility] Comment on above: Performed By: #### L 501.9520, L300.3900, L501.5101, L500.4100, L501.9985, L3410.9998, L100.0100, L506.0400, L501.4700, L501.6710, L503.6550, L500.4050 #### [facility] Laboratory [address] [place], [address] RBC (Bld) [#/Vol] 4.63 10*6/uL Normal 4.6-6.2 [facility] Comment on above: Performed By: #### L 501.9520, L300.3900, L501.5101, L500.4100, L501.9985, L3410.9998, L100.0100, L506.0400, L501.4700, L501.6710, L503.6550, L500.4050 #### [facility] Laboratory [address] [place], [address] RDW SD 51.8 fl High 35.1-43.9 [facility] Comment on above: Performed By: #### L 501.9520, L300.3900, L501.5101, L500.4100, L501.9985, L3410.9998, L100.0100, L506.0400, L501.4700, L501.6710, L503.6550, L500.4050 #### [facility] Laboratory [address] [place], [address] WBC (Bld) [#/Vol] 10.2 10*3/uL Normal 4.4-11.0 [facility] Comment on above: Performed By: #### L 501.9520, L300.3900, L501.5101, L500.4100, L501.9985, L3410.9998, L100.0100, L506.0400, L501.4700, L501.6710, L503.6550, L500.4050 #### [facility] Laboratory [address] [place], [address] CRPon 11-30-2024 C-REACTIVE PROT 13.10 mg/L High 0.0-3.0 [facility] Comment on above: Result Comment: C-Re active Protein (CRP) provides useful information for the diagnosis, therapy and monitoring of inflammatory processes and associated diseases. For the evaluation of Relative Risk for Cardiovascular Disease, a High Sensitivity CRP (HSCRP) should be ordered. Performed By: #### L 501.9520, L300.3900, L501.5101, L500.4100, L501.9985, L3410.9998, L100.0100, L506.0400, L501.4700, L501.6710, L503.6550, L500.4050 #### [facility] Laboratory [address] [place], [address] Comprehensive Metabolic Prof ilon 11-30-2024 Albumin [Mass/Vol] 3.7 g/dL Normal 3.2-5.0 [facility] Comment on above: Performed By: #### L 501.9520, L300.3900, L501.5101, L500.4100, L501.9985, L3410.9998, L100.0100, L506.0400, L501.4700, L501.6710, L503.6550, L500.4050 #### [facility] Laboratory [address] [place], [address] Albumin/Globulin [Mass ratio] 0.9 {ratio} Normal 0.9-2.4 [facility] Comment on above: Performed By: #### L 501.9520, L300.3900, L501.5101, L500.4100, L501.9985, L3410.9998, L100.0100, L506.0400, L501.4700, L501.6710, L503.6550, L500.4050 #### [facility] Laboratory [address] [place], [address] ALK P 116 U/L Normal 45-117 [facility] Comment on above: Performed By: #### L 501.9520, L300.3900, L501.5101, L500.4100, L501.9985, L3410.9998, L100.0100, L506.0400, L501.4700, L501.6710, L503.6550, L500.4050 #### [facility] Laboratory [address] [place], [place], [id number] (958) ALT [Catalytic activity/Vol] 24 U/L Normal 16-61 [facility] Comment on above: Performed By: #### L 501.9520, L300.3900, L501.5101, L500.4100, L501.9985, L3410.9998, L100.0100, L506.0400, L501.4700, L501.6710, L503.6550, L500.4050 #### [facility] Laboratory [address] [place], [place], [id number] (321) AST [Catalytic activity/Vol] 20 U/L Normal 15-37 [facility] Comment on above: Performed By: #### L 501.9520, L300.3900, L501.5101, L500.4100, L501.9985, L3410.9998, L100.0100, L506.0400, L501.4700, L501.6710, L503.6550, L500.4050 #### [facility] Laboratory [address] [place], [place], [id number] Bilirubin [Mass/Vol] 1.40 mg/dL High 0.20-1.00 [facility] Comment on above: Result Comment: For patients on eltrombopag therapy, use of Dimension Vesta TBIL is not recommended. Performed By: #### L 501.9520, L300.3900, L501.5101, L500.4100, L501.9985, L3410.9998, L100.0100, L506.0400, L501.4700, L501.6710, L503.6550, L500.4050 #### [facility] Laboratory [address] [place], [address] BUN/CRE 8.1 RATIO Low 10-20 [facility] Comment on above: Performed By: #### L 501.9520, L300.3900, L501.5101, L500.4100, L501.9985, L3410.9998, L100.0100, L506.0400, L501.4700, L501.6710, L503.6550, L500.4050 #### [facility] Laboratory [address] [place], [address] CA,Total 9.1 mg/dL Normal 8.5-10.1 [facility] Comment on above: Performed By: #### L 501.9520, L300.3900, L501.5101, L500.4100, L501.9985, L3410.9998, L100.0100, L506.0400, L501.4700, L501.6710, L503.6550, L500.4050 #### [facility] Laboratory [address] [place], [address] Chloride [Moles/Vol] 104 mmol/L Normal 98-107 [facility] Comment on above: Performed By: #### L 501.9520, L300.3900, L501.5101, L500.4100, L501.9985, L3410.9998, L100.0100, L506.0400, L501.4700, L501.6710, L503.6550, L500.4050 #### [facility] Laboratory [address] [place], [address] CO2 [Moles/Vol] 23.0 mmol/L Normal 21.0-32.0 [facility] Comment on above: Performed By: #### L 501.9520, L300.3900, L501.5101, L500.4100, L501.9985, L3410.9998, L100.0100, L506.0400, L501.4700, L501.6710, L503.6550, L500.4050 #### [facility] Laboratory [address] [place], [address] Creatinine [Mass/Vol] 1.36 mg/dL High 0.70-1.30 [facility] Comment on above: Result Comment: The validity of the calculated GFR GFRAA in patients over 70 years has not been determined. Clinical correlation is essential. Performed By: #### L 501.9520, L300.3900, L501.5101, L500.4100, L501.9985, L3410.9998, L100.0100, L506.0400, L501.4700, L501.6710, L503.6550, L500.4050 #### [facility] Laboratory [address] [place], [address] EST GFR - AA 70 mL/min Normal >60 [facility] Comment on above: Result Comment: Afri can Marshallese GFR Calc Performed By: #### L 501.9520, L300.3900, L501.5101, L500.4100, L501.9985, L3410.9998, L100.0100, L506.0400, L501.4700, L501.6710, L503.6550, L500.4050 #### [facility] Laboratory [address] [place], [address] GAP 11 Normal 5-15 [facility] Comment on above: Performed By: #### L 501.9520, L300.3900, L501.5101, L500.4100, L501.9985, L3410.9998, L100.0100, L506.0400, L501.4700, L501.6710, L503.6550, L500.4050 #### [facility] Laboratory [address] [place], [address] GFR/1.73 sq M.predicted among non-blacks MDRD (S/P/Bld) [Vol rate/Area] 58 mL/min/{1.73_m2} Low >60 [facility] Comment on above: Result Comment: Non- GFR Calc Performed By: #### L 501.9520, L300.3900, L501.5101, L500.4100, L501.9985, L3410.9998, L100.0100, L506.0400, L501.4700, L501.6710, L503.6550, L500.4050 #### [facility] Laboratory [address] [place], [address] Globulin (S) [Mass/Vol] 4.2 g/dL Normal 2.2-4.2 [facility] Comment on above: Performed By: #### L 501.9520, L300.3900, L501.5101, L500.4100, L501.9985, L3410.9998, L100.0100, L506.0400, L501.4700, L501.6710, L503.6550, L500.4050 #### [facility] Laboratory [address] [place], [place], [phone] (315) Glucose [Mass/Vol] 127 mg/dL High 74-106 [facility] Comment on above: Result Comment: Fast ing Glucose result greater than or equal to 126 mg/dL suggests DIABETES MELLITUS per A.D.A. criteria. Performed By: #### L 501.9520, L300.3900, L501.5101, L500.4100, L501.9985, L3410.9998, L100.0100, L506.0400, L501.4700, L501.6710, L503.6550, L500.4050 #### [facility] Laboratory [address] [place], [address] Potassium [Moles/Vol] 3.3 mmol/L Low 3.5-5.1 [facility] Comment on above: Performed By: #### L 501.9520, L300.3900, L501.5101, L500.4100, L501.9985, L3410.9998, L100.0100, L506.0400, L501.4700, L501.6710, L503.6550, L500.4050 #### [facility] Laboratory [address] [place], [address] Sodium [Moles/Vol] 138 mmol/L Normal 136-145 [facility] Comment on above: Performed By: #### L 501.9520, L300.3900, L501.5101, L500.4100, L501.9985, L3410.9998, L100.0100, L506.0400, L501.4700, L501.6710, L503.6550, L500.4050 #### [facility] Laboratory [address] [place], [address] T PROT 7.9 g/dL Normal 6.4-8.2 [facility] Comment on above: Performed By: #### L 501.9520, L300.3900, L501.5101, L500.4100, L501.9985, L3410.9998, L100.0100, L506.0400, L501.4700, L501.6710, L503.6550, L500.4050 #### [facility] Laboratory [address] [place], [address] Urea nitrogen [Mass/Vol] 11 mg/dL Normal 7-18 [facility] Comment on above: Performed By: #### L 501.9520, L300.3900, L501.5101, L500.4100, L501.9985, L3410.9998, L100.0100, L506.0400, L501.4700, L501.6710, L503.6550, L500.4050 #### [facility] Laboratory [address] [place], [address] Ferritinon 11-30-2024 Ferritin [Mass/Vol] 203 ng/mL Normal 26-388 [facility] Comment on above: Performed By: #### L 501.9520, L300.3900, L501.5101, L500.4100, L501.9985, L3410.9998, L100.0100, L506.0400, L501.4700, L501.6710, L503.6550, L500.4050 ####[facility] [id number] [place], [address] Gastroenterology Visit Repor ton 11-30-2024 Gastroenterology Visit Report [facility] [address] [place] [address] OFFICE VISIT Date of Service: 11/30/24 MR#: [id number] Acct: [id number] Name: ANGELITA KRUSE Rep #: [id number] : 1970 Provider: Dr. Patel lizarraga MD Age/Sex: 54/M Location: [facility] Status: Signed with Addenda ADDENDUM by Dr. Patel Kennedy MD on 12/01/24 at 2052 Addendum Serum potassium is low. Total bilirubin is mildly elevated. Started on spironolactone and Ursodiol. Hepatitis profile, serum LUIS, serum ELF AND GGT ordered. 12/01/242052 Date Patel Kennedy MD cc: Dr. Patel Kennedy MD * Signed Intake Vital Signs 06/29/24 10:54 10/25/24 12:50 11/30/24 12:19 Height 5 ft 8 in 5 ft 8 in 5 ft 8 in Weight: 326 lb BMI 49.6 BP 144/84 H Position Sitting Pulse 100 Pulse Oximetry (%) 95 Oxygen Delivery Method room air Intake Visit Reasons: 5 MFU Allergies No Known Allergies Allergy (Verified 11/30/24 12:18) Medications ???Medication ???Instructions ???Recorded ???Confirmed ???Type risperidone 2 mg tablet (Risperdal) 4 mg PO QHS 09/06/15 11/30/24 H istory cholecalciferol (vitamin D3) 1,250 1,250 mcg PO QWEEK 1 month #5 ca ps 08/18/24 11/30/24 Rx mcg (50,000 unit) capsule metformin 500 mg tablet 500 mg PO BID 90 days #180 tabs 11/30/24 Rx pantoprazole 40 mg tablet,delayed 40 mg PO DAILY #30 tabs 08/18/24 11/30/24 Rx release pioglitazone 15 mg tablet (Actos) 15 mg PO DAILY #30 tabs 08/18/24 11/30/24 Rx sertraline 25 mg tablet (Zoloft) 100 mg PO QHS 10/25/24 11/30/24 Hi story ursodiol 250 mg tablet 200 mg PO BID 10/25/24 11/30/24 Hi story PFSH Medical History Loss of consciousness Gastric reflux Obesity HANNA (nonalcoholic steatohepatitis) Hereditary hemochromatosis Anemia Wears partial dentures Anxiety Smoker Hepatitis Depression Schizophrenia Surgical History History of esophagogastroduodenoscopy (EGD) History of liver biopsy Hx of tooth extraction Family History Mother Ovarian cancer Uncle Cancer unknown Uncle Cancer lung Social History household members: family housing: house current occupational status: unemployed Smoking Status: Current every day smoker tobacco type: smokeless tobacco Tobacco: How many years used: 14 Smokeless tobacco user: chewing tobacco and snuff second hand exposure: No alcohol intake: never substance use type: does not use what type of physical activity do you participate in: none domenico/hindu: None seatbelt use: always do you feel safe at home: Yes HPI HPI Details: ANGELITA KRUSE, is a 54 M who presents to the office today for follow up. Wvaluation of HANNA, hereditary hemochromatosis and obesity. Psychiatric history includes schizophrenia (diagnosed at age 35) and depression. Follows with Dr. Barrera, hematology for chronic macrocytic anemia and hereditary hemochromatosis double heterozygous C282Y/H63D; there is no active treatment at this time, just monitoring. *BGI established 08.02.21 for abdominal pain and jaundice appearance for which he was hospitalized 07.23.21. Biochemical hereditary hemochromatosis ??? two mutations identified C282Y and H63D EGD 08.14.21 LA Grade C reflux esophagitis and positive for Soares???s esophagus. MRCP performed 08.22.21 with findings of diffuse hepatic steatosis. Liver Bx 08.23.21. Macrovesicular steatosis. No evidence of cirrhosis. Hematology consult 08.22.21 for anemia and hereditary hemochromatosis with biochemical workup. OV 08.29.21 Start actos and ursodiol. OV 10.08.21 US and elastography abd 10.18.21 liver measures 21cm with increased echogenicity. Sludge seen within gallbladder lumen. Liver stiffness measures 7.2 kPa correlating with F2. Hematology OV 11.28.22 for anemia and hereditary hemochromatosis with recommendation to monitor. OV 12.09.22 Angelita feels he is doing well at the moment. No active symptoms requiring improvement. OV 06.09.23 Pt reports no changes since last visit. Continues to take medication as prescribed. Has not made any lifestyle changes in regards to his obesity. Does not have any other complaints. OV 09.16.23- Pt reports no change since last visit. Denies any abdominal pain, changes to bowels, swelling, dizziness. Patient again weight about 8 pounds since last visit in May 2023. Denies heartburn, acid reflux, burping or other dyspeptic symptoms. EGD 12.01.23- Suggestive of Soares's Esophagus, Non-bleeding ulcer Pathology- Moderate gastritis, congestion and reactive (more content not included)... Normal [facility] Hemoglobin A1con 11-30-2024 HbA1c (Bld) [Mass fraction] 5.0 % Normal 3.8-5.6 [facility] Comment on above: Result Comment: Norm al < 5.7 % Prediabetic 5.7 - 6.4 % Diabetic >or= 6.5 % Please note range changes. Performed By: #### L 501.9520, L300.3900, L501.5101, L500.4100, L501.9985, L3410.9998, L100.0100, L506.0400, L501.4700, L501.6710, L503.6550, L500.4050 #### [facility] Laboratory [address] [place], [place], [id number] Lipid Profileon 11-30-2024 Cholesterol [Mass/Vol] 139 mg/dL Normal 200 [facility] Comment on above: Result Comment: <200 mg/dL Desirable 200-240 mg/dL Borderline >240 mg/dL High Risk Performed By: #### L 501.9520, L300.3900, L501.5101, L500.4100, L501.9985, L3410.9998, L100.0100, L506.0400, L501.4700, L501.6710, L503.6550, L500.4050 #### [facility] Laboratory [address] [place], [place], [id number] Cholesterol in HDL [Mass/Vol] 45 mg/dL Normal [facility] Comment on above: Result Comment: The drugs N-Acetylcysteine and Metamizole may falsely depress this assay. Reference Range HDL <40 mg/dL Low HDL Cholesterol HDL >or= 60 mg/dL High HDL Cholesterol Performed By: #### L 501.9520, L300.3900, L501.5101, L500.4100, L501.9985, L3410.9998, L100.0100, L506.0400, L501.4700, L501.6710, L503.6550, L500.4050 #### [facility] Laboratory [address] [place], [address] Cholesterol in LDL [Mass/Vol] 78 mg/dL Normal 0-130 [facility] Comment on above: Performed By: #### L 501.9520, L300.3900, L501.5101, L500.4100, L501.9985, L3410.9998, L100.0100, L506.0400, L501.4700, L501.6710, L503.6550, L500.4050 #### [facility] Laboratory [address] [place], [address] Cholesterol in VLDL [Mass/Vol] 16 mg/dL Normal 5-40 [facility] Comment on above: Performed By: #### L 501.9520, L300.3900, L501.5101, L500.4100, L501.9985, L3410.9998, L100.0100, L506.0400, L501.4700, L501.6710, L503.6550, L500.4050 #### [facility] Laboratory [address] [place], [address] Triglyceride [Mass/Vol] 78 mg/dL Normal [facility] Comment on above: Result Comment: The drugs N-Acetylcysteine and Metamizole may falsely depress this assay. Serum Triglycerides Reference Interval Normal <150 mg/dL Borderline high 150 - 199 mg/dL High 200 - 499 mg/dL Very High > or = 500 mg/dL Performed By: #### L 501.9520, L300.3900, L501.5101, L500.4100, L501.9985, L3410.9998, L100.0100, L506.0400, L501.4700, L501.6710, L503.6550, L500.4050 #### [facility] Laboratory [address] [place], [address] Prothrombin Time w/INRon INR Coag (PPP) [Relative time] 1.0 {INR} Normal [facility] Comment on above: Performed By: #### L 501.9520, L300.3900, L501.5101, L500.4100, L501.9985, L3410.9998, L100.0100, L506.0400, L501.4700, L501.6710, L503.6550, L500.4050 #### [facility] Laboratory [address] [place], [address] PT Coag (PPP) [Time] 13.7 s Normal 11.7-14.9 [facility] Comment on above: Performed By: #### L 501.9520, L300.3900, L501.5101, L500.4100, L501.9985, L3410.9998, L100.0100, L506.0400, L501.4700, L501.6710, L503.6550, L500.4050 #### [facility] Laboratory [address] [place], [address] T4 Free Directon 11-30-2024 T4 FREE DIRECT 1.23 ng/dL Normal 0.76-1.46 [facility] Comment on above: Performed By: #### L 501.9520, L300.3900, L501.5101, L500.4100, L501.9985, L3410.9998, L100.0100, L506.0400, L501.4700, L501.6710, L503.6550, L500.4050 ####[facility] [id number] [place], [address] Thyroid Stim Hormone (TSH)on 11-30-2024 TSH 7.290 uIU/mL High 0.358-3.740 [facility] Comment on above: Performed By: #### L 501.9520, L300.3900, L501.5101, L500.4100, L501.9985, L3410.9998, L100.0100, L506.0400, L501.4700, L501.6710, L503.6550, L500.4050 ####[facility] [id number] [facility] [place], [place], [id number] T3 Total - Triiodothyronineo n 10-26-2024 T3 Total 1.23 ng/mL Normal 0.6-1.81 [facility] Comment on above: Performed By: #### L 501.9520, L300.3900, L501.5101, L500.4100, L501.9985, L3410.9998, L100.0100, L506.0400, L501.4700, L501.6710, L503.6550, L500.4050 #### [facility] Laboratory [address]. [place], [place], [id number] T4 Free Directon 10-26-2024 T4 FREE DIRECT 1.27 ng/dL Normal 0.76-1.46 [facility] Comment on above: Performed By: #### L 501.9520, L300.3900, L501.5101, L500.4100, L501.9985, L3410.9998, L100.0100, L506.0400, L501.4700, L501.6710, L503.6550, L500.4050 #### [facility] [address]. [place], [place], [id number] Thyroid Stim Hormone (TSH)on 10-25-2024 TSH 6.640 uIU/mL High 0.358-3.740 [facility] Comment on above: Performed By: #### L 501.9520, L300.3900, L501.5101, L500.4100, L501.9985, L3410.9998, L100.0100, L506.0400, L501.4700, L501.6710, L503.6550, L500.4050 #### [facility] [facility] [address] [place], [address] Vitamin D,25 Hydroxyon 10-25 Vitamin D 25-OH 43.0 ng/mL Normal [facility] Comment on above: Result Comment: Kaela min D 25(OH) Status Range Deficiency <20 ng/mL (50nmol/L) Insufficiency 20 - 30 ng/mL (50 - 75 nmol/L) Sufficiency 30 - 100 ng/mL (75 - 250 nmol/L) Toxicity >100 ng/mL (>250 nmol/L) Performed By: #### L 501.9520, L300.3900, L501.5101, L500.4100, L501.9985, L3410.9998, L100.0100, L506.0400, L501.4700, L501.6710, L503.6550, L500.4050 #### [facility] [address] [place], [place], [address] Internal Medicine Office Vis iton 10-22-2024 Internal Medicine Office Visit [facility] [address] [place] [address] [place] [address] OFFICE VISIT Date of Service: 10/25/24 MR#: [id number] Acct: [id number] Name: ALEJANDRA KRUSEMASHA Lizarraga Rep #: [id number] : 1970 Provider: Dr. Vane hernandez MD Age/Sex: 54/M Location: [facility] Status: Signed Intake Vital Signs 06/29/24 10:54 10/25/24 12:50 Height 5 ft 8 in 5 ft 8 in Weight: 330 lb BMI 50.1 BP 132/84 H Blood Pressure Location Lt brachial Position Sitting Respiration 16 Pulse 98 Pulse Source Monitor Temp 97.2 F L Temp Source Temporal Pulse Oximetry (%) 98 Oxygen Delivery Method room air Intake Visit Reasons: EST NEW PT - [facility] SENT Chief Complaint: est care Lathe Set Up Person Required: No Accompanied by: Father Is patient in pain?: No Allergies No Known Allergies Allergy (Verified 10/25/24 12:44) Medications ???Medication ???Instructions ???Recorded ???Confirmed ???Type risperidone 2 mg tablet (Risperdal) 4 mg PO QHS 09/06/15 10/25/24 History cholecalciferol (vitamin D3) 1,250 1,250 mcg PO QWEEK 1 month #5 caps 08/18/24 10/25/24 Rx mcg (50,000 unit) capsule metformin 500 mg tablet 500 mg PO BID 90 days #180 tabs 08/18/24 10/25/24 Rx pantoprazole 40 mg tablet,delayed 40 mg PO DAILY #30 tabs 08/18/24 10/25/24 Rx release pioglitazone 15 mg tablet (Actos) 15 mg PO DAILY #30 tabs 08/18/24 10/25/24 Rx sertraline 25 mg tablet (Zoloft) 100 mg PO QHS 10/25/24 10/25/24 History ursodiol 250 mg tablet 200 mg PO BID 10/25/24 History PFSH Medical History (Updated 10/25/24 @ 16:[address] Vane Edward MD) Loss of consciousness Gastric reflux Obesity HANNA (nonalcoholic steatohepatitis) Hereditary hemochromatosis Anemia Wears partial dentures Anxiety Smoker Hepatitis Depression Schizophrenia Surgical History History of esophagogastroduodenoscopy (EGD) History of liver biopsy Hx of tooth extraction Family History Mother Ovarian cancer Uncle Cancer unknown Uncle Cancer lung Social History (Updated 10/25/24 @ 13:[address] Vane Edward MD) household members: family housing: house current occupational status: unemployed Smoking Status: Current every day smoker tobacco type: smokeless tobacco Tobacco: How many years used: 14 Smokeless tobacco user: chewing tobacco and snuff second hand exposure: No alcohol intake: never substance use type: does not use what type of physical activity do you participate in: none domenico/hindu: None seatbelt use: always do you feel safe at home: Yes HPI HPI Chief Complaint: est care Details: ANGELITA KRUSE, is a 54 M who presents to the office today to establish care. He hasn't had a PCP before. He is due for some follow up blood work and screening. He doesn't want any immunizations. He doesn't smoke and doesn't need any refills. He reports he is eating healthy, but his dad reports he eats a lot of snacks and is not staying active. The patient was started on actos and metformin for his fatty liver. He doesn't check his sugars at home and doesn't recall a diagnosis of diabetes. He is taking his medication as prescribed without problems. He doesn't really monitor his carbohydrate and sugar intake. He reports he does drink a lot of pop. The patient follows with GI regularly for his fatty liver/liver fibrosis. He is doing well on his medications without any problems. He has a follow up with them next month. The patient has a history of depression, anxiety and schizophrenia. He reports that he follows with Deana Thompson, and sees her every 4 months. He reports he is doing well in terms of his mental health. He states that they are going to be changing his risperdal but otherwise is doing well on his medications. He denies any current concerns nor any thoughts of suicide. He has no other questions or concerns at this time. ROS Const Constitutional: No body ache, chills, excessive sweating, fatigue, fever(s), frequent falls, headache(s), snoring, weakness, weight change or change in appetite Eyes Eyes: No blurry vision, change in vision, eye pain or Light sensitivity ENT ENT: No abnormal hearing, ear or mastoid pain, tinnitus, nasal congestion, headache(s), neck pain or sore throat Resp Respiratory: No cough, shortness of breath, snoring or wheezing Cardio Cardiology: No chest pain at rest, chest pain with exertion, excessive sweating, dyspnea on exertion, lightheadedness, orthopnea, palpitations or other (no leg swelling) Gastro GI: No abdominal pain, change in bowel habits, constipation, cramping, diarrhea, nausea/dyspepsia or vomiting Genitourinary Male: No difficulty urinating, burning urination, painful urination, urinary incontinence o (more content not included)... Normal [facility] Encounters Encounter Date Encounter Type Care Provider Facility Start: 09-16-2025 [facility] Facility: [facility] Start: 08-18-2025 End: 08-18-2025 ambulatory [facility] Facility:[facility] Start: 08-18-2025 End: 08-18-2025 ambulatory Vane Holladay Facility:[facility] Start: 11-30-2024 End: 11-30-2024 ambulatory No Primary Care Physician Facility:[facility] Start: 11-30-2024 End: 11-30-2024 ambulatory Vane Holladay Facility:[facility] Start: 10-25-2024 End: 10-25-2024 ambulatory No Primary Care Physician Facility:[facility] Start: 10-25-2024 End: 10-25-2024 ambulatory [facility] Facility:[facility] Payers Date Payer Category Payer Self-pay 2024 Medicare [id number] Unknown [id number] 2.16.8 [id number] Unknown [id number] 2.16.8 [id number] Unknown [id number] 2.16.8 [id number] Unknown [id number] 2.16.8 [id number] Unknown [id number] 2.16.8 [id number] Unknown [id number] 2.16.8 [id number] Unknown [id number] 2.16.8 [id number] Summary Purpose Family History No Family History Records Found Advance Directives No Advanced Directives Records Found Additional Source Comments (unrecognized sect ion and content) No Status Records Found INFORMATION SOURCE (unrecogn ized section and content) DATE CREATED AUTHOR 08/26/2025 [facility] FOR RECORDS PERTAINING TO PATIENTS WHO ARE OR HAVE BEEN ENROLLED IN A CHEMICAL DEPENDENCY/SUBSTANCEABUSE PROGRAM, SOME INFORMATION MAY BE OMITTED. This clinical summary was aggregated from multiple sources. Caution should be exercised in using it in the provision of clinical care. This summary normalizes information from multiple sources, and as a consequence, information in this document may materially change the coding, format and clinical context of patient data. In addition, data may be omitted in some cases. CLINICAL DECISIONS SHOULD BE BASED ON THE PRIMARY CLINICAL RECORDS. [facility]. provides no warranty or guarantee of the accuracy or completeness of information in this document.
== END | disposition home or self-care (01) ==
LOC: US 07:32
PROVIDERS: PCP Internal Medicine; Referring Provider Internal Medicine; Visit Provider Internal Medicine
DX: K22.719 Barrett's esophagus with dysplasia, unspecified (principal); E83.110 Hereditary hemochromatosis; K75.81 Nonalcoholic steatohepatitis (NASH)
CPT/HCPCS: 76705; 76981